=== PATIENT | male | born 1945 | race African-American/Black ===

== ENCOUNTER → 2017-08-05 | Day surgery (SDC) | payer OTHER ==
[~2017-08-05] VITALS: Ht 167.6 cm; Wt 63.9 kg
[~2017-08-05] MED LIST: *RESP: ALBUTEROL 2.5 MG/3 ML NEB (PRN) PERIprocedural Use ONLY NEB ONE; *morphine SULFATE 8 MG/ML PERIprocedure ONLY ONE; ADVA250A INH; ALBUAER3 INH; APIX5TAB PO; ATOR10TA15 PO; CHLORHEXIDINE GLUCONATE 2 % 1 PACK (2 CLOTHS) TOPICAL PRN; DILT30TA PO; DO NOT ADM ANY ANTICOAGULANT DRUGS PRN; EPINEPHrine HCL (1:1000) 1 MG/ML VIAL ONE; FURO40TA PO; INSULIN HUMAN REGULAR 1,000 UNITS/10 ML VIAL SQ PRN; JANU50TA4 PO; LACTATED RINGER'S 1000 ML IV PRN; LACTCHW3 CHEW; LEVEMIR SQ; LIDOCAINE HCL 1% PF 5 ML SYRINGE OTHER ONE; LIDOCAINE HCL 2% PF SOLN 10 ML VIAL ONE; METOPROLOL TARTRATE 25 MG TAB PO PRN; OXYGEN NAS.CANULA; PHENYLEPH/NS 1000 MCG/10 ML SYR IV ONE; POTA-163 PO; POVIDONE IODINE 5% (ANTISEPSIS KIT) 4 APPLICATIONS EACH NARE PRN; PRED1 PO; PROPOFOL 200 MG/20 ML AMP IV ONE; RESP: ALBUTEROL 2.5 MG/3 ML NEB (PRN) NEB; SODIUM CHLORID 0.9% 500 ML IV PRN; SODIUM CHLORIDE 0.9% 20 ML VIAL ONE; UMEC1AER INH; WARF-23 PO
[2017-08-05 05:51] LABS: AUTOMATED NEUTROPHIL # 5.5 TH/MM3 (1.8-7.7); BASOPHIL # 0.1 TH/MM3 (0-0.2); BASOPHIL % 0.9 % (0.0-2.0); EOSINOPHIL # 0.3 TH/MM3 (0-0.4); EOSINOPHIL % 3.3 % (0.0-4.0); HEMATOCRIT 40.9 % (39.0-51.0); HEMO FLAGS DIFF FINAL; LYMPH % 27.7 % (9.0-44.0); LYMPHOCYTE # 2.7 TH/MM3 (1.0-4.8); MEAN CELL VOLUME 86.4 FL (80.0-100.0); MEAN CORPUSCULAR HEMOGLOBIN 28.3 PG (27.0-34.0); MEAN CORPUSCULAR HGB CONC 32.7 % (32.0-36.0); MONO % 10.9 % (0.0-8.0); NEUT % 57.2 % (16.0-70.0); PLATELET COUNT 317 TH/MM3 (150-450); RED BLOOD COUNT 4.73 MIL/MM3 (4.50-5.90); RED CELL DISTRIBUTION WIDTH 14.6 % (11.6-17.2); WHITE BLOOD COUNT 9.7 TH/MM3 (4.0-11.0)
[2017-08-05 06:06] LABS: PROTHROMBIN TIME - PATIENT 10.5 SEC (9.8-11.6)
--- NOTE | 2017-08-05 09:32 | MR ---
cc: KYLAH MONTERO Corrected: 08/08/2017 DATE: 08/04/2017 TYPE OF PROCEDURE Fiberoptic bronchoscopy flexible. REASON FOR BRONCHOSCOPY: Density in the left lower lung, rule out underlying malignancy. PROCEDURE: Fiberoptic bronchoscopy performed via LMA. Vocal cords intact. Trachea mildly hyperemic. Demetra sharp. Right mainstem bronchus, right upper, middle and lower lobe inspected. No obstruction or mass lesion identified. Left mainstem bronchus, left upper and lower lobes without obstruction or mass lesion. However, thick mucous plugs quite difficult to remove via bronchoscopy which had to be removed and reintroduced several times to take all plugs out the tracheobronchial tree was patent. Washings from both sides of the tracheobronchial tree for routine TB, fungal cultures as cytological examination obtained. Cytologic brush biopsies left lower lung obtained as well for cytological exam procedure well tolerated. The patient transferred to recovery in stable condition. IMPRESSION 1. Moderate tracheobronchitis 2. Excess mucoid secretion and plugging. 3. No endobronchial obstruction or mass lesion. 4. Entire procedure well tolerated. 5. Samples obtained as above. 6. The patient transferred to recovery room stable condition. MD NYASIA Grijalva/mai /8:37 AM /9:17 AM MTDHuy
[2017-08-05 10:32] VITALS: BP 121/67; PULSE 106; RESP 20; TEMP 97.5; O2SAT 97
--- NOTE | 2017-08-05 12:15 | EKG ---
Date Performed: 08/05/2017 Time Performed: 06:03:34 PTAGE: 71 years EKG: SINUS TACHYCARDIA WITH FREQUENT ECTOPIC PREMATURE COMPLEXES NONSPECIFIC T-WAVE ABNORMALITY ABNORMAL RHYTHM ECG Compared to PREVIOUS TRACING sinus tachycardia has replaced supraventricular tachycardia PREVIOUS TR ACIN06/23/2016 19.46 DOCTOR: Estuardo Sims Interpretating Date/Time 08/05/2017 12:12:51
== END | disposition home or self-care (01) ==
LOC: HSDC 05:09
PROVIDERS: ATTEND Internal Medicine Sleep Medicine
DX: J40 Bronchitis, not specified as acute or chronic (principal); J44.9 Chronic obstructive pulmonary disease, unspecified; J96.90 Respiratory failure, unspecified, unspecified whether with hypoxia or hypercapnia; R94.31 Abnormal electrocardiogram [ECG] [EKG]; Z99.81 Dependence on supplemental oxygen; Z79.01 Long term (current) use of anticoagulants
CPT/HCPCS: 00520; 31623; 82948; 85025; 85610; 85730; 87015; 87070; 87102; 87116; 87205; 87206; 88305; 93005; 94664; J2270; J2370; J3010; J7120; J7613; J0171

== ENCOUNTER 2017-11-21 01:28 | Inpatient (IN) | payer MEDICARE, OTHER ==
[2017-11-20 22:54] VITALS: BP 131/66; PULSE 87; RESP 18; TEMP 97.4; O2SAT 92
[~2017-11-21] VITALS: Ht 167.6 cm; Wt 71.0 kg
[2017-11-21] VITALS (18 sets, daily range): BP systolic 113–159; BP diastolic 62–78; PULSE 72–114; RESP 18–24; TEMP 96.7–100.1; O2SAT 88–98
[~2017-11-21 01:28] MED LIST changes: -*RESP: ALBUTEROL 2.5 MG/3 ML NEB (PRN) PERIprocedural Use ONLY NEB ONE; -*morphine SULFATE 8 MG/ML PERIprocedure ONLY ONE; -CHLORHEXIDINE GLUCONATE 2 % 1 PACK (2 CLOTHS) TOPICAL PRN; -DO NOT ADM ANY ANTICOAGULANT DRUGS PRN; -EPINEPHrine HCL (1:1000) 1 MG/ML VIAL ONE; -INSULIN HUMAN REGULAR 1,000 UNITS/10 ML VIAL SQ PRN; -LACTATED RINGER'S 1000 ML IV PRN; -LIDOCAINE HCL 1% PF 5 ML SYRINGE OTHER ONE; -LIDOCAINE HCL 2% PF SOLN 10 ML VIAL ONE; -METOPROLOL TARTRATE 25 MG TAB PO PRN; -PHENYLEPH/NS 1000 MCG/10 ML SYR IV ONE; -POVIDONE IODINE 5% (ANTISEPSIS KIT) 4 APPLICATIONS EACH NARE PRN; -PROPOFOL 200 MG/20 ML AMP IV ONE; -RESP: ALBUTEROL 2.5 MG/3 ML NEB (PRN) NEB; -SODIUM CHLORID 0.9% 500 ML IV PRN; -SODIUM CHLORIDE 0.9% 20 ML VIAL ONE
[2017-11-21] MEDS ORDERED: ONDANSETRON HCL 4 MG/2 ML VIAL IV ONE (01:45)
[2017-11-21] MEDS ORDERED: RESP: ALBUTEROL 2.5 MG/3 ML NEB (SCH) NEB ONE (01:45)
[2017-11-21] MEDS ORDERED: SODIUM CHLORIDE 0.9% FLUSH 10 ML FLUSH IVF PRN (01:45)
--- NOTE | 2017-11-21 01:54 | PD ---
HPI Chief Complaint: Respiratory Symptoms Time Seen by Provider: 01:34 Travel History International Travel<30 days: No Contact w/Intl Traveler<30days: No Traveled to known affect area: No History of Present Illness HPI The patient is a 72 year old male who presents to the [facility] emergency department with a history of shortness of breath and chest pain that began this afternoon. The patient reports that the chest pain has been constant and in the center of his chest. He reports that his shortness of breath has been associated with a cough this afternoon that has been productive of white sputum. The patient reports that he does have a history of COPD. He is on 2 L nasal cannula O2 as needed. He cannot recall the name of his physician, however he believes that it is a hospice physician. He does not know why he is on hospice. He denies having any prior history of myocardial infarction. He reports having nausea and vomiting 2 this afternoon. He denies having any diarrhea. His last bowel movement was earlier today. He denies having any lower extremity edema, calf pain, or erythema. Otherwise on review of systems, the patient denies having any known recent fevers, neck pain, abdominal pain, urinary symptoms, or neurologic symptoms. [facility] Past Medical History Narrative Medical The patient's past medical history is significant for COPD, history of atrial fibrillation, according to the record a history of diastolic congestive heart failure, type 2 diabetes mellitus, chronic neck and back pain, chronic kidney disease, acid reflux, hypertension, hyperlipidemia. Hx Anticoagulant Therapy: Yes Arthritis: Yes Asthma: No Autoimmune Disease: No Blood Disorders: No Anxiety: No Depression: No Heart Rhythm Problems: No Cancer: No Cardiac Catheterization: No Cardiovascular Problems: Yes High Cholesterol: Yes Chemotherapy: No Chest Pain: No Congestive Heart Failure: No COPD: Yes Cerebrovascular Accident: No Coronary Artery Disease: No Diabetes: Yes Patient Takes Glucophage: No Diminished Hearing: No Endocrine: Yes Gastrointestinal Disorders: Yes GERD: Yes Genitourinary: Yes Hiatal Hernia: No Hypertension: Yes Immune Disorder: No Implanted Vascular Access Dvce: Yes Kidney Stones: Yes Musculoskeletal: Yes (CHRONIC BACK PAIN AND NECK PAIN ) Neurologic: Yes Psychiatric: No Reproductive: No Respiratory: Yes (copd) Immunizations Current: Yes Migraines: No Pneumonia: Yes Radiation Therapy: No Renal Failure: No Seizures: No Sickle Cell Disease: No Sleep Apnea: No Thyroid Disease: No Ulcer: No PNEUMOCCOCAL Vaccine (Year): 1 Past Surgical History Narrative Surgical The patient's past surgical history is significant for cervical spinal fusion in 1965 Abdominal Surgery: No AICD: No Arteriovenous Shunt: No Body Medical Devices: FUSION IN NECK UPPER BACK Cardiac Surgery: No Coronary Artery Bypass Graft: No Ear Surgery: No Endocrine Surgery: No Eye Surgery: No Genitourinary Surgery: No Gynecologic Surgery: No Insulin Pump: No Joint Replacement: No Oral Surgery: No Pacemaker: No Thoracic Surgery: No Other Surgery: Yes Social History Alcohol Use: No Tobacco Use: No Substance Use: No Allergies-Medications (Allergen,Severity, Reaction): Coded Allergies: tiotropium (Unverified Allergy, Severe, 11/21/17) Uncoded Allergies: SPIRIVA (Allergy, Unknown, TONGUE SWELLING, 03/15/14) PT STATES THAT HIS TONGUE WOULD SWELL AND HAVE DRY MOUTH WHEN TAKING THIS MED AT HOME Reported Meds & Prescriptions Reported Meds & Active Scripts Active Reported Atorvastatin (Atorvastatin Calcium) 10 Mg Tab 10 Mg PO HS Eliquis (Apixaban) 5 Mg Tab 5 Mg PO BID Oxygen (O2) (Miscellaneous Medication) Inha Liter TOSHA.CANULA DIRECTED PRN Oxygen Concentrator Portable Gaseous 2 L/min via Nasal Canula Continuous For 99 months Levemir Inj (Insulin Detemir) 1,000 unit/ 10 ML Vial 20 Units SQ HS Do not mix with any other Insulin. Furosemide 40 Mg Tab 40 Mg PO BID Advair Diskus Inh (Fluticasone-Salmeterol Inh) 250-50 Mcg/Blist Aer 1 Puff INH BID Rinse mouth after use. Diltiazem (Diltiazem HCl) 30 Mg Tab 30 Mg PO QID Proair Hfa 8.5 GM Inh (Albuterol Sulfate) 90 Mcg/Act Aer 1 Puff INH Q4H PRN 108 mcg/actuation Review of Systems Except as stated in HPI: all other systems reviewed are Neg General / Constitutional: No: Fever Eyes: No: Visual changes HENT: Positive: Congestion, No: Headaches Cardiovascular: Positive: Chest Pain or Discomfort, Dyspnea on exertion, No: Edema Respiratory: Positive: Cough, Shortness of Breath Gastrointestinal: Positive: Nausea, Vomiting, No: Abdominal Pain Genitourinary: No: Dysuria Musculoskeletal: No: Pain Skin: No Rash Neurologic: No: Weakness, Focal Abnormalities, Change in Mentation, Slurred Speech, Sensory Disturbance Psychiatric: No: Depression Endocrine: No: Polydipsia Hematologic/Lymphatic: No: Easy Bruising Physical Exam Narrative General: The patient is a well-developed well-nourished male in no acute distress, O2 saturations on room air are 88%. Head and Neck exam: Head is normocephalic atraumatic. Eyes: EOMI, pupils are equal round and reactive to light. Nose: Midline septum with pink mucous membranes Mouth: Dentition unremarkable. Moist mucus membranes. Posterior oropharynx is not erythematous. No tonsillar hypertrophy. Uvula midline. Airway patent. Neck: No palpable lymphadenopathy. No nuchal rigidity. No thyromegaly. Cardiovascular: Regular sounding tachycardia with a rate in the low 100 without murmurs, gallops , or rubs. No pulse deficit to the extremities on simultaneous auscultation and palpation of his radial artery. Lungs: Decreased breath sounds in bilateral lung bases, soft anterior expiratory wheezes, no rhonchi. No accessory muscle use. No paroxysmal abdominal breathing. No tripoding. Abdomen: Soft, without tenderness to palpation in all 4 quadrants of the abdomen. No guarding, rebound, or rigidity. Normal bowel sounds are audible. No tenderness on palpation of McBurney's point. Negative Mon sign. Extremities: No clubbing or cyanosis. The patient has trace pedal edema bilateral lower extremities. 2+ pulses in all 4 extremities. No calf tenderness on palpation. Back: No spinous process tenderness to palpation. No costovertebral angle tenderness to palpation. Neurologic Exam: Grossly nonfocal. Skin Exam: No rash noted. Intact skin that is warm and dry. Data Data Last Documented VS Vital Signs Date Time Temp Pulse Resp B/P (MAP) Pulse Ox O2 Delivery O2 Flow Rate FiO2 11/21/17 01:56 98 Nasal Cannula 3.00 11/21/17 01:50 11/21/17 01:36 110 19 11/21/17 01:31 99.0 Orders Orders Complete Blood Count With Diff (11/21/17 01:45) Comprehensive Metabolic Panel (11/21/17 01:45) B-Type Natriuretic Peptide (11/21/17 01:45) Act Partial Throm Time (Ptt) (11/21/17 01:45) Prothrombin Time / Inr (Pt) (11/21/17 01:45) Magnesium (Mg) (11/21/17 01:45) Ckmb (Isoenzyme) Profile (11/21/17 01:45) Troponin I (11/21/17 01:45) Urinalysis - C+S If Indicated (11/21/17 01:45) Influenzae A/B Antigen (11/21/17 01:45) Blood Culture (11/21/17 01:45) Iv Access Insert/Monitor (11/21/17 01:45) Electrocardiogram (11/21/17 01:45) Ecg Monitoring (11/21/17 01:45) Oximetry (11/21/17 01:45) Oxygen Administration (11/21/17 01:45) Chest, Single Ap (11/21/17 01:45) Sodium Chloride 0.9% Flush (Ns Flush) (11/21/17 01:45) Ondansetron Inj (Zofran Inj) (11/21/17 01:45) Albuterol Neb (Albuterol Neb) (11/21/17 01:45) Aspirin Chew (Aspirin Chew) (11/21/17 02:00) Nitroglycerin 2% Oint (Nitroglycerin 2% (11/21/17 02:00) Nitroglycerin Sl (Nitrostat Sl) (11/21/17 02:00) Lactic Acid Sepsis Protocol (11/21/17 02:35) Ceftriaxone Inj (Rocephin Inj) (11/21/17 02:45) Azithromycin Inj (Zithromax Inj) (11/21/17 02:45) CKMB (11/21/17 02:02) CKMB% (11/21/17 02:02) Ct Pulmonary Angiogram (11/21/17 03:16) Admit Order (Ed Use Only) (11/21/17 04:26) Labs Laboratory Tests Test 11/21/17 02:02 11/21/17 03:10 11/21/17 03:25 White Blood Count 15.3 TH/MM3 Red Blood Count 4.67 MIL/MM3 Hemoglobin 13.5 GM/DL Hematocrit 39.7 % Mean Corpuscular Volume 85.0 FL Mean Corpuscular Hemoglobin 28.8 PG Mean Corpuscular Hemoglobin Concent 33.9 % Red Cell Distribution Width 13.8 % Platelet Count 250 TH/MM3 Mean Platelet Volume 8.1 FL Neutrophils (%) (Auto) 87.5 % Lymphocytes (%) (Auto) 6.5 % Monocytes (%) (Auto) 5.7 % Eosinophils (%) (Auto) 0.0 % Basophils (%) (Auto) 0.3 % Neutrophils # (Auto) 13.4 TH/MM3 Lymphocytes # (Auto) 1.0 TH/MM3 Monocytes # (Auto) 0.9 TH/MM3 Eosinophils # (Auto) 0.0 TH/MM3 Basophils # (Auto) 0.0 TH/MM3 CBC Comment DIFF FINAL Differential Comment Prothrombin Time 9.8 SEC Prothromb Time International Ratio 1.0 RATIO Activated Partial Thromboplast Time 26.1 SEC Blood Urea Nitrogen 14 MG/DL Creatinine 0.97 MG/DL Random Glucose 276 MG/DL Total Protein 6.8 GM/DL Albumin 3.2 GM/DL Calcium Level 8.0 MG/DL Magnesium Level 1.8 MG/DL Alkaline Phosphatase 139 U/L Aspartate Amino Transf (AST/SGOT) 17 U/L Alanine Aminotransferase (ALT/SGPT) 23 U/L Total Bilirubin 0.5 MG/DL Sodium Level 135 MEQ/L Potassium Level 3.6 MEQ/L Chloride Level 99 MEQ/L Carbon Dioxide Level 24.5 MEQ/L Anion Gap 12 MEQ/L Estimat Glomerular Filtration Rate 92 ML/MIN Total Creatine Kinase 176 U/L Creatine Kinase MB 2.3 NG/ML Troponin I LESS THAN 0.02 NG/ML B-Type Natriuretic Peptide 10 PG/ML Urine Color LIGHT-YELLOW Urine Turbidity CLEAR Urine pH 5.5 Urine Specific [place] 1.025 Urine Protein 30 mg/dL Urine Glucose (UA) 1000 mg/dL Urine Ketones 40 mg/dL Urine Occult Blood SMALL Urine Nitrite NEG Urine Bilirubin NEG Urine Urobilinogen LESS THAN 2.0 MG/DL Urine Leukocyte Esterase NEG Urine RBC 8 /hpf Urine Squamous Epithelial Cells 1 /hpf Microscopic Urinalysis Comment CULT NOT INDICATED Lactic Acid Level 1.5 mmol/L MDM Medical Decision Making Medical Screen Exam Complete: Yes Emergency Medical Condition: Yes Medical Record Reviewed: Yes Interpretation(s) Last Impressions CT Angiography 11/21/17 0316 Signed Impressions: Service Date/Time: Tuesday, November 21, 2017 04:57 - CONCLUSION: 1. No evidence of pulmonary embolism. 2. There is a consolidation in both lower lobes right greater than left as well as patchy infiltrate in the right middle lobe most characteristic of pneumonia. Mario Herr MD Chest X-Ray 11/21/17 0145 Signed Impressions: Service Date/Time: Tuesday, November 21, 2017 01:58 - CONCLUSION: More Midinspiratory exam with patchy opacity at the lung bases right greater than left. This may represent atelectasis. Early pneumonia could have this appearance especially at the right lung base. Mario Herr MD Differential Diagnosis COPD exacerbation, versus pneumonia, versus effusion, versus congestive heart failure, versus pulmonary embolus Narrative Course During the course of the patient's emergency department visit, the patient's history, examination, and differential diagnosis were reviewed with the patient. The patient was placed on a field operator with oximetry and frequent blood pressure monitoring. The patient had IV access obtained and blood work sent for analysis. The patient had an EKG done on arrival that shows a sinus tachycardia rate of 107, QRS duration 70 ms, QTC 374 ms without any acute ST segment elevation or depression. The patient was initially provided Zofran 4 mg IV for nausea, nitroglycerin sublingual 1, nitroglycerin 1 inch to the chest wall, aspirin 324 mg p.o. 1. The patient's laboratory studies were reviewed and remarkable for a white count of 15.3, hemoglobin 13.5, platelets 250 with 87.5 neutrophils, lymphocytes 6.5, CMP is remarkable for sodium of 135, glucose 276, calcium 8.0, alk phos 139, cardiac enzymes within normal limits, BNP is 10, PT PTT within normal limit, urinalysis shows 30 protein 1000 glucose 40 ketones small occult blood 8 RBCs culture not indicated. A CTA to rule out PE was done. Lactic acid is 1.5. Radiology studies were reviewed and remarkable for patchy infiltrate bilateral lung jewell suspicious for pneumonia. The patient was started on Rocephin 1 g IV, Zithromax [address] scan shows no evidence of pulmonary embolism. There is consolidation in both lower lobes right greater than the left as well as a patchy infiltrate in the right middle lobe most characteristic of pneumonia. The patient's results were discussed with the patient, including the plan of care. I explained that further testing and/ or monitoring is indicated based on the patient's history, examination, and/ or laboratory findings. Therefore, I recommended admission for additional evaluation. The patient expressed understanding and was agreeable with this plan. The patient was admitted to the hospital in stable condition and sent to a bed under the care of the [facility] service. Sepsis Criteria SIRS Criteria (2 or more): Heart rate over 90, RR > 20 or PaCO2 < 32, WBC > 45911, < 4000 or > 10% bands Sepsis Criteria (SIRS+source): Infect source susp/known Physician Communication Physician Communication The patient's case including history, pertinent physical examination findings, and laboratory studies were discussed with Dr. Arana. It was agreed that the patient would be admitted to the [facility] service. Diagnosis Primary Impression: CAP (community acquired pneumonia) Qualified Codes: J18.9 - Pneumonia, unspecified organism Admitting Information Admitting Physician Requests: Admit Sara Verdin MD Nov 21, 2017 01:54
[2017-11-21] MEDS ORDERED: ASPIRIN 81 MG CHEW TAB CHEW ONE (02:00)
[2017-11-21] MEDS ORDERED: NITROGLYCERIN 2% OINT 1 GM PACKET TOPICAL ONE (02:00)
[2017-11-21] MEDS ORDERED: NITROGLYCERIN 0.4 MG SL 25 TABS/BTL SL ONE (02:00)
--- NOTE | 2017-11-21 02:14 | RADRPT ---
EXAM DATE/TIME: 11/21/2017 01:58 [facility] COMPARISON: CHEST SINGLE AP, June 23, 2016, 14:38. INDICATIONS : Shortness of breath. MEDICAL HISTORY : Chronic obstructive pulmonary disease. SURGICAL HISTORY : None. ENCOUNTER: Initial ACUITY: 1 day PAIN SCORE: 0/10 LOCATION: Bilateral chest FINDINGS: A single AP semierect view of the chest was obtained and is more Midinspiratory than the prior study. There is patchy opacity at the lung bases right greater than left. There is no effusion. The heart a nd mediastinal structures remain within normal limits. The bony thorax is intact. Overlying electroca rdiogram leads are present. CONCLUSION: More Midinspiratory exam with patchy opacity at the lung bases right greater than lef t. This may represent atelectasis. Early pneumonia could have this appearance especially at the right lung base. Mario Herr MD on November 21, 2017 at 2:11 Board Certified Radiologist. This report was verified electronically.
[2017-11-21 02:20] LABS: AUTOMATED NEUTROPHIL # 13.4 TH/MM3 (1.8-7.7); BASOPHIL % 0.3 % (0.0-2.0); HEMATOCRIT 39.7 % (39.0-51.0); HEMOGLOBIN 13.5 GM/DL (13.0-17.0); LYMPH % 6.5 % (9.0-44.0); MEAN CORPUSCULAR HEMOGLOBIN 28.8 PG (27.0-34.0); MEAN CORPUSCULAR HGB CONC 33.9 % (32.0-36.0); MEAN PLATELET VOLUME 8.1 FL (7.0-11.0); MONO % 5.7 % (0.0-8.0); MONOCYTE # 0.9 TH/MM3 (0-0.9); NEUT % 87.5 % (16.0-70.0); PLATELET COUNT 250 TH/MM3 (150-450); RED BLOOD COUNT 4.67 MIL/MM3 (4.50-5.90); RED CELL DISTRIBUTION WIDTH 13.8 % (11.6-17.2); WHITE BLOOD COUNT 15.3 TH/MM3 (4.0-11.0)
[2017-11-21 02:29] LABS: PROTHROMBIN TIME - PATIENT 9.8 SEC (9.8-11.6)
[2017-11-21 02:45] LABS: ALBUMIN 3.2 GM/DL (3.4-5.0); ALT (GPT) 23 U/L (12-78); AST (GOT) 17 U/L (15-37); BICARBONATE 24.5 MEQ/L (21.0-32.0); BLOOD UREA NITROGEN 14 MG/DL (7-18); CHLORIDE 99 MEQ/L (98-107); CREATININE 0.97 MG/DL (0.60-1.30); GLOMERULAR FILTRATION RATE 92 ML/MIN (>89); GLUCOSE,RANDOM 276 MG/DL (74-106); MAGNESIUM 1.8 MG/DL (1.5-2.5); SODIUM (NA) 135 MEQ/L (136-145)
[2017-11-21] MEDS ORDERED: cefTRIAXone INJ 1,000 MG in SODIUM CHLORIDE 0.9% INJ 100 ML IV ONE (02:45)
[2017-11-21] MEDS ORDERED: AZITHROMYCIN INJ 500 MG in SODIUM CHLOR 0.9% 250 ML INJ 250 ML IV ONE (02:45)
[2017-11-21 02:50] LABS: ALKALINE PHOSPHATASE 139 U/L (45-117); TOTAL BILIRUBIN ADULT 0.5 MG/DL (0.2-1.0); TOTAL PROTEIN 6.8 GM/DL (6.4-8.2); TROPONIN I LESS THAN 0.02 NG/ML (0.02-0.05)
[2017-11-21 03:30] LABS: BILIRUBIN, URINE NEG (NEG); BLOOD, URINE SMALL (NEG); GLUCOSE,URINE 1000 mg/dL (NEG); KETONE, URINE 40 mg/dL (NEG); NITRITE,URINE NEG (NEG); PH, URINE 5.5 (5.0-8.5); SQUAMOUS EPITHELIAL CELL URINE 1 /hpf (0-5); URINE COLOR LIGHT-YELLOW (YELLW/STRAW); URINE LEUKOCYTE ESTERASE NEG (NEG)
[2017-11-21] MEDS ORDERED: ACETAMINOPHEN 325 MG TAB PO PRN (04:45)
[2017-11-21] MEDS ORDERED: SODIUM CHLORIDE 0.9% FLUSH 10 ML FLUSH IV FLUSH PRN (04:45)
[2017-11-21] MEDS ORDERED: ONDANSETRON HCL 4 MG/2 ML VIAL IVP PRN (04:45)
[2017-11-21] MEDS ORDERED: NALOXONE HCL 0.4 MG/ML AMP IV PUSH PRN (04:45)
[2017-11-21] MEDS ORDERED: GLUCAGON 1 MG/ML VIAL OTHER PRN (05:15)
[2017-11-21] MEDS ORDERED: DEXTROSE 50% IN WATER 50 ML VIAL(D50) IV PUSH PRN (05:15)
--- NOTE | 2017-11-21 05:21 | HHI.HP ---
HPI Service [facility] Primary Care Physician Unknown Admission Diagnosis Pneumonia, shortness of breath, chest pain Diagnoses: Travel History International Travel<30 Days: No Contact w/Intl Traveler <30 Da: No Traveled to Known Affected Are: No History of Present Illness 72-year-old male with a past medical history significant for atrial fibrillation anticoagulated on Eliquis, COPD, diabetes mellitus, hypertension, hyperlipidemia, history of pulmonary embolism and CHF (last echo on 04/03/16 showed an EF of 55-60%) presents the emergency department for evaluation of worsening cough and shortness of breath. The patient reports that earlier this evening he began to have a cough productive of yellow sputum. He reports coughing to the point of vomiting. He describes associated weakness and shortness of breath. He also complains of a substernal chest pain that is stabbing in nature and worse when he coughs. He denies any fever/chills. Denies nausea/vomiting/diarrhea. Review of Systems Except as stated in HPI: all other systems reviewed are Neg Past Family Social History Past Medical History atrial fibrillation anticoagulated on Eliquis, COPD, diabetes mellitus, hypertension, hyperlipidemia, history of pulmonary embolism and CHF (last echo on 04/03/16 showed an EF of 55-60%) Past Surgical History Multiple neck and back surgeries Reported Medications Reported Meds & Active Scripts Active Reported Atorvastatin (Atorvastatin Calcium) 10 Mg Tab 10 Mg PO HS Eliquis (Apixaban) 5 Mg Tab 5 Mg PO BID Oxygen (O2) (Miscellaneous Medication) Inha Liter TOSHA.CANULA DIRECTED PRN Oxygen Concentrator Portable Gaseous 2 L/min via Nasal Canula Continuous For 99 months Levemir Inj (Insulin Detemir) 1,000 unit/ 10 ML Vial 20 Units SQ HS Do not mix with any other Insulin. Furosemide 40 Mg Tab 40 Mg PO BID Advair Diskus Inh (Fluticasone-Salmeterol Inh) 250-50 Mcg/Blist Aer 1 Puff INH BID Rinse mouth after use. Diltiazem (Diltiazem HCl) 30 Mg Tab 30 Mg PO QID Proair Hfa 8.5 GM Inh (Albuterol Sulfate) 90 Mcg/Act Aer 1 Puff INH Q4H PRN 108 mcg/actuation Allergies: Coded Allergies: tiotropium (Unverified Allergy, Severe, 11/21/17) Uncoded Allergies: SPIRIVA (Allergy, Unknown, TONGUE SWELLING, 03/15/14) PT STATES THAT HIS TONGUE WOULD SWELL AND HAVE DRY MOUTH WHEN TAKING THIS MED AT HOME Family History Mother with diabetes mellitus Social History Denies alcohol, tobacco or illicit drugs Physical Exam Vital Signs Vital Signs Date Time Temp Pulse Resp B/P (MAP) Pulse Ox O2 Delivery O2 Flow Rate FiO2 11/21/17 04:53 72 151/62 (91) 11/21/17 01:56 98 Nasal Cannula 3.00 11/21/17 01:50 98 Nasal Cannula 3.00 11/21/17 01:50 98 3.00 11/21/17 01:46 98 3.00 11/21/17 01:36 110 19 159/78 (105) 88 11/21/17 01:31 99.0 114 24 128/78 (95) 89 Room Air Physical Exam GENERAL: Thin, male lying in bed SKIN: No rashes, ecchymoses or lesions. Cool and dry. HEAD: Atraumatic. Normocephalic. No temporal or scalp tenderness. EYES: Pupils equal round and reactive. Extraocular motions intact. No scleral icterus. No injection or drainage. ENT: Nose without bleeding, purulent drainage or septal hematoma. Throat without erythema, tonsillar hypertrophy or exudate. Uvula midline. Airway patent. NECK: Trachea midline. No JVD or lymphadenopathy. Supple, nontender, no meningeal signs. CARDIOVASCULAR: Regular rate and rhythm without murmurs, gallops, or rubs. RESPIRATORY: Tight. Breath sounds equal bilaterally. No wheezes, rales, or rhonchi. GASTROINTESTINAL: Abdomen soft, non-tender, nondistended. No hepato-splenomegaly , or palpable masses. No guarding. MUSCULOSKELETAL: Extremities without clubbing, cyanosis, or edema. No joint tenderness, effusion, or edema noted. No calf tenderness. NEUROLOGICAL: Awake and alert. Cranial nerves II through XII intact. Motor and sensory grossly within normal limits. Normal speech. Laboratory Laboratory Tests Test 11/21/17 02:02 11/21/17 03:10 11/21/17 03:25 11/21/17 05:00 White Blood Count 15.3 Red Blood Count 4.67 Hemoglobin 13.5 Hematocrit 39.7 Mean Corpuscular Volume 85.0 Mean Corpuscular Hemoglobin 28.8 Mean Corpuscular Hemoglobin Concent 33.9 Red Cell Distribution Width 13.8 Platelet Count 250 Mean Platelet Volume 8.1 Neutrophils (%) (Auto) 87.5 Lymphocytes (%) (Auto) 6.5 Monocytes (%) (Auto) 5.7 Eosinophils (%) (Auto) 0.0 Basophils (%) (Auto) 0.3 Neutrophils # (Auto) 13.4 Lymphocytes # (Auto) 1.0 Monocytes # (Auto) 0.9 Eosinophils # (Auto) 0.0 Basophils # (Auto) 0.0 CBC Comment DIFF FINAL Differential Comment Prothrombin Time 9.8 Prothromb Time International Ratio 1.0 Activated Partial Thromboplast Time 26.1 Blood Urea Nitrogen 14 Creatinine 0.97 Random Glucose 276 Total Protein 6.8 Albumin 3.2 Calcium Level 8.0 Magnesium Level 1.8 Alkaline Phosphatase 139 Aspartate Amino Transf (AST/SGOT) 17 Alanine Aminotransferase (ALT/SGPT) 23 Total Bilirubin 0.5 Sodium Level 135 Potassium Level 3.6 Chloride Level 99 Carbon Dioxide Level 24.5 Anion Gap 12 Estimat Glomerular Filtration Rate 92 Total Creatine Kinase 176 Creatine Kinase MB 2.3 Troponin I LESS THAN 0.02 B-Type Natriuretic Peptide 10 Urine Color LIGHT-YELLOW Urine Turbidity CLEAR Urine pH 5.5 Urine Specific [place] 1.025 Urine Protein 30 Urine Glucose (UA) 1000 Urine Ketones 40 Urine Occult Blood SMALL Urine Nitrite NEG Urine Bilirubin NEG Urine Urobilinogen LESS THAN 2.0 Urine Leukocyte Esterase NEG Urine RBC 8 Urine Squamous Epithelial Cells 1 Microscopic Urinalysis Comment CULT NOT INDICATED Lactic Acid Level 1.5 Date/Time Source Procedure Growth Status 11/21/17 02:03 Blood Peripheral Aerobic Blood Culture Pending Received 11/21/17 02:03 Blood Peripheral Anaerobic Blood Culture Pending Received 11/21/17 02:51 Nasal Aspirate Influenza Types A,B Antigen (CYNTHIA) - Final NEGATIVE FOR FLU A AND B ANTIGEN.... Complete Result Diagram: 11/21/17 0202 11/21/17 0202 Caprini VTE Risk Assessment Caprini VTE Risk Assessment: Mod/High Risk (score >= 2) Caprini Risk Assessment Model Point Value = 1 Point Value = 2 Point Value = 3 Point Value = 5 Age 41-60 Minor surgery BMI > 25 kg/m2 Swollen legs Varicose veins or History of unexplained or recurrent spontaneous Oral contraceptives or hormone replacement Sepsis (< 1 month) Serious lung disease, including pneumonia (< 1 month) Abnormal pulmonary function Acute myocardial infarction Congestive heart failure (< 1 month) History of inflammatory bowel disease Medical patient at bed rest Age 61-74 Arthroscopic surgery Major open surgery (> 45 min) Laparoscopic surgery (> 45 min) Malignancy Confined to bed (> 72 hours) Immobilizing plaster cast Central venous access Age >= 75 History of VTE Family history of VTE Factor V Leiden Prothrombin [id number] Lupus anticoagulant Anticardiolipin antibodies Elevated serum homocysteine Heparin-induced thrombocytopenia Other congenital or acquired thrombophilia Stroke (< 1 month) Elective arthroplasty Hip, pelvis, or leg fracture Acute spinal cord injury (< 1 month) Prophylaxis Regimen Total Risk Factor Score Risk Level Prophylaxis Regimen 0-1 Low Early ambulation 2 Moderate Order ONE of the following: *Sequential Compression Device (SCD) *Heparin 5000 units SQ BID 3-4 Higher Order ONE of the following medications: *Heparin 5000 units SQ TID *Enoxaparin/Lovenox 40 mg SQ daily (WT < 150 kg, CrCl > 30 mL/min) *Enoxaparin/Lovenox 30 mg SQ daily (WT < 150 kg, CrCl > 10-29 mL/min) *Enoxaparin/Lovenox 30 mg SQ BID (WT < 150 kg, CrCl > 30 mL/min) AND/OR *Sequential Compression Device (SCD) 5 or more Highest Order ONE of the following medications: *Heparin 5000 units SQ TID (Preferred with Epidurals) *Enoxaparin/Lovenox 40 mg SQ daily (WT < 150 kg, CrCl > 30 mL/min) *Enoxaparin/Lovenox 30 mg SQ daily (WT < 150 kg, CrCl > 10-29 mL/min) *Enoxaparin/Lovenox 30 mg SQ BID (WT < 150 kg, CrCl > 30 mL/min) AND *Sequential Compression Device (SCD) Assessment and Plan Assessment and Plan Assessment/plan: 1. Pneumonia/COPD exacerbation Chest x-ray significant for patchy opacities at the lung bases, right greater than left, personally reviewed Rocephin/azithromycin IV steroids Albuterol 2. Chest pain Likely secondary to above however pain was substernal in nature EKG showed sinus tachycardia without ST segment elevations or depressions, personally reviewed Initial troponin negative ACS rule out pending; serial troponins/EKGs 3. Atrial fibrillation Continue anticoagulation with Eliquis Continue home medications 4. CHF/hypertension/hyperlipidemia Continue home medications 5. History of PE Anticoagulation as above 6. Diabetes mellitus Continue home Levemir SSI Monitor blood glucose FEN Diabetic diet Electrolytes: Monitor and replete when necessary [place] Physician Certification 2 Midnight Certification Type: Admission for Inpatient Services Order for Inpatient Services The services are ordered in accordance with Medicare regulations or non- Medicare payer requirements, as applicable. In the case of services not specified as inpatient-only, they are appropriately provided as inpatient services in accordance with the 2-midnight benchmark. Estimated LOS (days): 2 2 days is the estimated time the patient will need to remain in the hospital, assuming treatment plan goals are met and no additional complications. Post-Hospital Plan: Not yet determined Tawana Arana MD Nov 21, 2017 05:21
[2017-11-21] MEDS ORDERED: IOHEXOL 350 MG/ML 10 ML VIAL (for RAD DIAG) IVCONTRAST ONE (05:23)
[2017-11-21 05:40] LABS: TROPONIN I LESS THAN 0.02 NG/ML (0.02-0.05)
--- NOTE | 2017-11-21 05:44 | RADRPT ---
EXAM DATE/TIME: 11/21/2017 04:57 [facility] COMPARISON: CT PULMONARY ANGIOGRAM, March 29, 2016, 21:34. INDICATIONS : Cough and dyspnea; history of pulmonary embolus in 2016. IV CONTRAST: 71 cc Omnipaque 350 (iohexol) IV RADIATION DOSE: 5.77 CTDIvol (mGy) MEDICAL HISTORY : Cardiovascular disease. Chronic obstructive pulmonary disease. Gastroesophageal reflux disease.Renal disease SURGICAL HISTORY : None. ENCOUNTER: Initial ACUITY: 1 day PAIN SCALE: 0/10 LOCATION: chest TECHNIQUE: Volumetric scanning of the chest was performed using a pulmonary embolism protocol MIP images were re constructed. Using automated exposure control and adjustment of the mA and/or kV according to patien t size, radiation dose was kept as low as reasonably achievable to obtain optimal diagnostic quality images. DICOM format image data is available electronically for review and comparison. Follow-up recommendations for detected pulmonary nodules are based at a minimum on nodule size and pa tient risk factors according to Fleischner Society Guidelines. FINDINGS: PULMONARY ARTERIES: No filling defects are seen in the pulmonary arteries through the segmental level. LUNGS: There is no pneumothorax . There is a focal area of dense consolidation now noted in the right lower lobe. There is mild patchy infiltrate in the right middle lobe. There is also an area of consolidati on in the left lower lobe. No concerning pulmonary nodule is visualized. PLEURAE: There is no pleural thickening or pleural effusion. MEDIASTINUM: There is good visualization of the great vessels of the middle mediastinum. No evidence of mediastin al or hilar adenopathy/mass. Mild coronary artery calcifications are present. MUSCULOSKELETAL: Within normal limits for patient age. MISCELLANEOUS: The visualized upper abdominal organs demonstrate no acute abnormality. CONCLUSION: 1. No evidence of pulmonary embolism. 2. There is a consolidation in both lower lobes right greater than left as well as patchy infiltrate in the right middle lobe most characteristic of pneumonia. Mario Herr MD on November 21, 2017 at 5:38 Board Certified Radiologist. This report was verified electronically.
[2017-11-21] MEDS ORDERED: methylPREDNISolone SOD SUCC 40 MG/1 ML VIAL IV PUSH SCH (06:00)
[2017-11-21] MEDS: APIXABAN 5 MG TABLET PO SCH ×2 (09:20→22:33)
[2017-11-21] MEDS: DILTIAZEM HCL 30 MG TAB PO SCH ×4 (09:20→22:33)
[2017-11-21] MEDS: SODIUM CHLORIDE 0.9% FLUSH 10 ML FLUSH IV FLUSH SCH ×2 (09:21→22:30)
[2017-11-21] MEDS: FUROSEMIDE 40 MG TAB PO SCH ×2 (09:21→22:31)
[2017-11-21] MEDS: INSULIN ASPART SUPPLEMENTAL SCALE SQ SCH ×4 (09:26→22:32)
--- NOTE | 2017-11-21 11:01 | HHI.PR ---
Subjective Remarks Follow-up pneumonia/COPD exacerbation 11/21/17-patient seen and examined, stable and reports some improvement of shortness of breath Objective Vitals Vital Signs Date Time Temp Pulse Resp B/P (MAP) Pulse Ox O2 Delivery O2 Flow Rate FiO2 11/21/17 09:53 95 11/21/17 08:15 99.0 105 18 113/69 (84) 94 11/21/17 08:05 111 11/21/17 07:50 11/21/17 07:36 100.1 98 18 123/72 (89) 97 Nasal Cannula 2.00 11/21/17 04:53 72 151/62 (91) 11/21/17 01:56 98 Nasal Cannula 3.00 11/21/17 01:50 98 Nasal Cannula 3.00 11/21/17 01:50 98 3.00 11/21/17 01:46 98 3.00 11/21/17 01:36 110 19 159/78 (105) 88 11/21/17 01:31 99.0 114 24 128/78 (95) 89 Room Air I/O 11/20/17 11/20/17 11/20/17 11/21/17 11/21/17 11/21/17 07:00 15:00 23:00 07:00 15:00 23:00 Intake Total 350 ml Balance 350 ml Intake IV Total 350 ml Result Diagram: 11/21/17 0202 11/21/17 [address] Angiography 11/21/17 0316 Signed Impressions: Service Date/Time: Tuesday, November 21, 2017 04:57 - CONCLUSION: 1. No evidence of pulmonary embolism. 2. There is a consolidation in both lower lobes right greater than left as well as patchy infiltrate in the right middle lobe most characteristic of pneumonia. Mario Herr MD Chest X-Ray 11/21/17 0145 Signed Impressions: Service Date/Time: Tuesday, November 21, 2017 01:58 - CONCLUSION: More Midinspiratory exam with patchy opacity at the lung bases right greater than left. This may represent atelectasis. Early pneumonia could have this appearance especially at the right lung base. Mario Herr MD Objective Remarks GENERAL: NAD SKIN: Warm and dry. HEAD: Normocephalic. EYES: No scleral icterus. No injection or drainage. NECK: Supple, trachea midline. No JVD or lymphadenopathy. CARDIOVASCULAR: Regular rate and rhythm without murmurs, gallops, or rubs. RESPIRATORY: Breath sounds decrease bilaterally. No accessory muscle use.+ wheezing GASTROINTESTINAL: Abdomen soft, non-tender, nondistended. MUSCULOSKELETAL: No cyanosis, or edema. BACK: Nontender without obvious deformity. No CVA tenderness. A/P Assessment and Plan 72-year-old man with 1. Pneumonia/COPD exacerbation Chest x-ray significant for patchy opacities at the lung bases, right greater than left Rocephin/azithromycin IV steroids however decrease to Q8H, add Spiriva and Symbicort Albuterol 2. Chest pain Likely secondary to above however pain was substernal in nature EKG showed sinus tachycardia without ST segment elevations or depressions Initial troponin negative ACS rule d out per protocol with serial troponin /EKGs 3. Atrial fibrillation Continue anticoagulation with Eliquis Continue home medications 4. CHF/hypertension/hyperlipidemia Continue home medications 5. History of PE Anticoagulation as above 6. Diabetes mellitus Continue home Levemir SSI Monitor blood glucose Shaheen Knight MD Nov 21, 2017 11:01
[2017-11-21 13:16] LABS: TROPONIN I LESS THAN 0.02 NG/ML (0.02-0.05)
[2017-11-21] MEDS: methylPREDNISolone SOD SUCC 40 MG/1 ML VIAL IV PUSH SCH ×2 (13:38→22:31)
[2017-11-21] MEDS: RESP: ALBUTEROL 2.5 MG/IPRATROPIUM 0.5 MG NEB (PRN) NEB (16:12)
[2017-11-21] MEDS: RESP: ALBUTEROL 2.5 MG/IPRATROPIUM 0.5 MG NEB (SCH) NEB (21:38)
[2017-11-21] MEDS: BUDESONIDE-FORMOTEROL 160/4.5 MCG INHALER INH SCH (22:29)
[2017-11-21] MEDS: ATORVASTATIN 10 MG TAB PO SCH (22:31)
[2017-11-21] MEDS: INSULIN DETEMIR 100 UNITS/ML VIAL SQ SCH (22:32)
--- NOTE | 2017-11-21 22:55 | EKG ---
Date Performed: 11/21/2017 Time Performed: 04:50:52 PTAGE: 72 years EKG: SINUS TACHYCARDIA WITH SHORT AK INTERVAL WITH OCCASIONAL VENTRICULAR PREMATURE COMPLEXES AB NORMAL RHYTHM ECG NO PREVIOUS TRACING DOCTOR: Jed Bowser Interpretating Date/Time 11/21/2017 22:50:00
--- NOTE | 2017-11-21 22:56 | EKG ---
Date Performed: 11/21/2017 Time Performed: 01:38:42 PTAGE: 72 years EKG: SINUS TACHYCARDIA ABNORMAL RHYTHM ECG NO PREVIOUS TRACING DOCTOR: Jed Bwoser Interpretating Date/Time 11/21/2017 22:50:43
[2017-11-22] VITALS (9 sets, daily range): BP systolic 119–128; BP diastolic 63–73; PULSE 79–97; RESP 17–19; TEMP 96.7–97.8; O2SAT 92–96
[2017-11-22] MEDS ORDERED: AZITHROMYCIN INJ 250 MG in SODIUM CHLOR 0.9% 250 ML INJ 250 ML IV SCH (03:00)
[2017-11-22] MEDS: AZITHROMYCIN INJ 250 MG in SODIUM CHLOR 0.9% 250 ML INJ 250 ML IV SCH (03:29)
[2017-11-22] MEDS: cefTRIAXone INJ 1,000 MG in SODIUM CHLORIDE 0.9% INJ 100 ML IV SCH (04:35)
[2017-11-22] MEDS: methylPREDNISolone SOD SUCC 40 MG/1 ML VIAL IV PUSH SCH ×3 (06:34→20:29)
[2017-11-22 07:20] LABS: AUTOMATED NEUTROPHIL # 19.5 TH/MM3 (1.8-7.7); BASOPHIL % 0.2 % (0.0-2.0); HEMATOCRIT 38.9 % (39.0-51.0); HEMOGLOBIN 13.1 GM/DL (13.0-17.0); LYMPH % 3.7 % (9.0-44.0); LYMPHOCYTE # 0.8 TH/MM3 (1.0-4.8); MEAN CELL VOLUME 85.4 FL (80.0-100.0); MEAN CORPUSCULAR HEMOGLOBIN 28.8 PG (27.0-34.0); MEAN CORPUSCULAR HGB CONC 33.7 % (32.0-36.0); MEAN PLATELET VOLUME 9.1 FL (7.0-11.0); MONO % 3.2 % (0.0-8.0); MONOCYTE # 0.7 TH/MM3 (0-0.9); NEUT % 92.9 % (16.0-70.0); PLATELET COUNT 181 TH/MM3 (150-450); RED BLOOD COUNT 4.55 MIL/MM3 (4.50-5.90); RED CELL DISTRIBUTION WIDTH 14.2 % (11.6-17.2)
[2017-11-22 07:32] LABS: BICARBONATE 26.9 MEQ/L (21.0-32.0); CALCIUM 8.4 MG/DL (8.5-10.1); CREATININE 1.07 MG/DL (0.60-1.30)
[2017-11-22] MEDS: INSULIN ASPART SUPPLEMENTAL SCALE SQ SCH ×4 (08:00→20:29)
[2017-11-22] MEDS: APIXABAN 5 MG TABLET PO SCH ×2 (08:10→20:28)
[2017-11-22] MEDS: BUDESONIDE-FORMOTEROL 160/4.5 MCG INHALER INH SCH ×2 (08:11→20:29)
[2017-11-22] MEDS: FUROSEMIDE 40 MG TAB PO SCH ×2 (08:11→20:27)
[2017-11-22] MEDS: DILTIAZEM HCL 30 MG TAB PO SCH ×4 (08:11→20:27)
[2017-11-22] MEDS: SODIUM CHLORIDE 0.9% FLUSH 10 ML FLUSH IV FLUSH SCH ×2 (08:11→20:28)
[2017-11-22] MEDS ORDERED: TIOTROPIUM BROMIDE 18 MCG INH INH SCH (09:00)
[2017-11-22] MEDS: RESP: ALBUTEROL 2.5 MG/IPRATROPIUM 0.5 MG NEB (SCH) NEB ×3 (09:09→20:47)
[2017-11-22 11:19] LABS: BANDS 25 % (0-6); LYMPHOCYTES 4 % (9-44); MONOCYTES 1 % (0-8); POLYS (SEG NEUTROPHILS) 70 % (16-70)
--- NOTE | 2017-11-22 13:32 | HHI.PR ---
Subjective Remarks Follow-up pneumonia/COPD exacerbation 11/21/17-patient seen and examined, stable and reports some improvement of shortness of breath 11/22/17-patient seen and examined, seen with some shortness of breath however states he has been doing much better since admission Objective Vitals Vital Signs Date Time Temp Pulse Resp B/P (MAP) Pulse Ox O2 Delivery O2 Flow Rate FiO2 11/22/17 11:45 97.6 93 18 127/63 (84) 96 11/22/17 09:11 92 Nasal Cannula 2.00 11/22/17 08:04 97.8 97 19 128/73 (91) 93 11/22/17 04:58 97.8 94 18 119/73 (88) 95 11/21/17 23:20 96.7 86 18 120/68 (85) 94 11/21/17 21:39 92 Nasal Cannula 3.00 11/21/17 18:04 96 11/21/17 16:23 98 11/21/17 16:16 95 Nasal Cannula 2.00 11/21/17 16:00 97.0 100 18 126/69 (88) 96 11/21/17 15:09 109 11/21/17 14:44 98 I/O 11/21/17 11/21/17 11/21/17 11/22/17 11/22/17 11/22/17 07:00 15:00 23:00 07:00 15:00 23:00 Intake Total 350 ml 600 ml 830 ml Output Total 1250 ml 550 ml Balance 350 ml -650 ml 280 ml Intake Oral 600 ml 480 ml IV Total 350 ml 350 ml Output Urine Total 1250 ml 550 ml # Bowel Movements 0 0 Result Diagram: 11/22/17 0545 11/22/17 0947 Objective Remarks GENERAL: NAD SKIN: Warm and dry. HEAD: Normocephalic. EYES: No scleral icterus. No injection or drainage. NECK: Supple, trachea midline. No JVD or lymphadenopathy. CARDIOVASCULAR: Regular rate and rhythm without murmurs, gallops, or rubs. RESPIRATORY: Breath sounds decrease bilaterally. No accessory muscle use.+ wheezing GASTROINTESTINAL: Abdomen soft, non-tender, nondistended. MUSCULOSKELETAL: No cyanosis, or edema. BACK: Nontender without obvious deformity. No CVA tenderness. A/P Problem List: (1) COPD exacerbation ICD Code: J44.1 - Obstructive chronic bronchitis with exacerbation Status: Acute (2) CAP (community acquired pneumonia) ICD Code: J18.9 - CAP (community acquired pneumonia) Status: Acute Assessment and Plan 72-year-old man with 1. Pneumonia/COPD exacerbation Chest x-ray significant for patchy opacities at the lung bases, right greater than left Continue Rocephin/azithromycin IV steroids however decrease to 20mg IV Q8H, add Serevent and continue Symbicort , Scheduled +PRN Duo Neb Albuterol 2. Chest pain-Resolved Likely secondary to above however pain was substernal in nature EKG showed sinus tachycardia without ST segment elevations or depressions Initial troponin negative ACS rule d out per protocol with serial troponin /EKGs 3. Atrial fibrillation Continue anticoagulation with Eliquis Continue home medications 4. CHF/hypertension/hyperlipidemia Continue home medications 5. History of PE Anticoagulation as above 6. Diabetes mellitus Continue home Levemir SSI Monitor blood glucose Shaheen Knight MD Nov 22, 2017 13:32
--- NOTE | 2017-11-22 18:54 | EKG ---
Date Performed: 11/21/2017 Time Performed: 14:00:22 PTAGE: 72 years EKG: Sinus rhythm WITH SHORT OK INTERVAL LOW QRS VOLTAGE IN EXTREMITY LEADS BORDERLINE ECG Since the prior tracing, th ere has been no significant change PREVIOUS TRACING : 11/21/2017 04.50 DOCTOR: Radha Domínguez Interpretating Date/Time 11/22/2017 18:48:29
[2017-11-22] MEDS: ATORVASTATIN 10 MG TAB PO SCH (20:28)
[2017-11-22] MEDS: INSULIN DETEMIR 100 UNITS/ML VIAL SQ SCH (20:29)
[2017-11-22] MEDS ORDERED: SALMETEROL XINAFOATE 50 MCG DISKUS INH SCH (21:00)
[2017-11-23] VITALS (11 sets, daily range): BP systolic 103–119; BP diastolic 57–70; PULSE 76–91; RESP 17–18; TEMP 96.3–97.3; O2SAT 92–98
[2017-11-23] MEDS: AZITHROMYCIN INJ 250 MG in SODIUM CHLOR 0.9% 250 ML INJ 250 ML IV SCH (03:00)
[2017-11-23] MEDS: cefTRIAXone INJ 1,000 MG in SODIUM CHLORIDE 0.9% INJ 100 ML IV SCH (03:29)
[2017-11-23] MEDS: methylPREDNISolone SOD SUCC 40 MG/1 ML VIAL IV PUSH SCH ×3 (05:53→21:07)
[2017-11-23] MEDS: RESP: ALBUTEROL 2.5 MG/IPRATROPIUM 0.5 MG NEB (SCH) NEB ×3 (08:12→19:37)
[2017-11-23] MEDS: INSULIN ASPART SUPPLEMENTAL SCALE SQ SCH ×4 (08:26→21:00)
[2017-11-23] MEDS: DILTIAZEM HCL 30 MG TAB PO SCH ×4 (08:27→21:07)
[2017-11-23] MEDS: APIXABAN 5 MG TABLET PO SCH ×2 (08:27→21:08)
[2017-11-23] MEDS: FUROSEMIDE 40 MG TAB PO SCH ×2 (08:27→21:08)
[2017-11-23] MEDS: SODIUM CHLORIDE 0.9% FLUSH 10 ML FLUSH IV FLUSH SCH ×2 (08:28→21:08)
[2017-11-23] MEDS: BUDESONIDE-FORMOTEROL 160/4.5 MCG INHALER INH SCH ×2 (08:28→21:06)
--- NOTE | 2017-11-23 13:01 | HHI.PR ---
Subjective Remarks Follow-up pneumonia/COPD exacerbation 11/21/17-patient seen and examined, stable and reports some improvement of shortness of breath 11/22/17-patient seen and examined, seen with some shortness of breath however states he has been doing much better since admission 11/23/17-patient seen and examined,complains of rattle lungs sounds. +SOB but denies any CP Objective Vitals Vital Signs Date Time Temp Pulse Resp B/P (MAP) Pulse Ox O2 Delivery O2 Flow Rate FiO2 11/23/17 12:06 96.9 88 17 110/59 (76) 96 11/23/17 08:14 93 Nasal Cannula 2.00 11/23/17 08:08 97.3 91 18 103/67 (79) 97 11/23/17 08:00 90 11/23/17 07:45 Nasal Cannula 2.00 11/23/17 03:51 84 11/23/17 03:34 97.0 76 18 119/70 (86) 92 11/23/17 00:29 97.2 83 18 115/57 (76) 93 11/22/17 23:46 88 11/22/17 22:45 Nasal Cannula 2.00 11/22/17 20:49 93 Nasal Cannula 2.00 11/22/17 20:11 96.7 79 18 121/66 (84) 92 11/22/17 20:00 90 11/22/17 16:01 97.2 97 17 124/71 (88) 95 I/O 11/22/17 11/22/17 11/22/17 11/23/17 11/23/17 11/23/17 07:00 15:00 23:00 07:00 15:00 23:00 Intake Total 830 ml 720 ml 360 ml 710 ml Output Total 550 ml 900 ml 500 ml Balance 280 ml -180 ml 360 ml 210 ml Intake Oral 480 ml 720 ml 360 ml 360 ml IV Total 350 ml 350 ml Output Urine Total 550 ml 900 ml 500 ml # Voids 5 # Bowel Movements 0 3 1 1 Result Diagram: 11/22/17 0545 11/22/17 [address] Angiography 11/21/17 0316 Signed Impressions: Service Date/Time: Tuesday, November 21, 2017 04:57 - CONCLUSION: 1. No evidence of pulmonary embolism. 2. There is a consolidation in both lower lobes right greater than left as well as patchy infiltrate in the right middle lobe most characteristic of pneumonia. Mario Herr MD Chest X-Ray 11/21/17 0145 Signed Impressions: Service Date/Time: Tuesday, November 21, 2017 01:58 - CONCLUSION: More Midinspiratory exam with patchy opacity at the lung bases right greater than left. This may represent atelectasis. Early pneumonia could have this appearance especially at the right lung base. Mario Herr MD Objective Remarks GENERAL: NAD SKIN: Warm and dry. HEAD: Normocephalic. EYES: No scleral icterus. No injection or drainage. NECK: Supple, trachea midline. No JVD or lymphadenopathy. CARDIOVASCULAR: Regular rate and rhythm without murmurs, gallops, or rubs. RESPIRATORY: Breath sounds decrease bilaterally. No accessory muscle use.+ wheezing GASTROINTESTINAL: Abdomen soft, non-tender, nondistended. MUSCULOSKELETAL: No cyanosis, or edema. BACK: Nontender without obvious deformity. No CVA tenderness. A/P Problem List: (1) COPD exacerbation ICD Code: J44.1 - Obstructive chronic bronchitis with exacerbation Status: Acute (2) CAP (community acquired pneumonia) ICD Code: J18.9 - CAP (community acquired pneumonia) Status: Acute Assessment and Plan 72-year-old man with 1. Pneumonia/COPD exacerbation Chest x-ray significant for patchy opacities at the lung bases, right greater than left Continue Rocephin/azithromycin IV Solu Medrol 20mg IV Q8H, Symbicort, Scheduled +PRN Duo Neb. Add Mucinex Albuterol 2. Chest pain-Resolved Likely secondary to above however pain was substernal in nature EKG showed sinus tachycardia without ST segment elevations or depressions Initial troponin negative ACS rule d out per protocol with serial troponin /EKGs 3. Atrial fibrillation Continue anticoagulation with Eliquis Continue home medications 4. CHF/hypertension/hyperlipidemia Continue home medications 5. History of PE Anticoagulation as above 6. Diabetes mellitus Continue home Levemir and add Aspart 5units TIDAC Shaheen Acosta MD Nov 23, 2017 13:01
[2017-11-23] MEDS: INSULIN ASPART 1,000 UNITS/10 ML VIAL SQ SCH (17:21)
[2017-11-23 20:23] LABS: AUTOMATED NEUTROPHIL # 11.8 TH/MM3 (1.8-7.7); BASOPHIL # 0.1 TH/MM3 (0-0.2); BASOPHIL % 0.5 % (0.0-2.0); HEMATOCRIT 38.1 % (39.0-51.0); HEMOGLOBIN 12.5 GM/DL (13.0-17.0); LYMPH % 4.9 % (9.0-44.0); LYMPHOCYTE # 0.7 TH/MM3 (1.0-4.8); MEAN CELL VOLUME 85.4 FL (80.0-100.0); MEAN CORPUSCULAR HEMOGLOBIN 28.2 PG (27.0-34.0); MEAN PLATELET VOLUME 8.5 FL (7.0-11.0); MONO % 5.4 % (0.0-8.0); MONOCYTE # 0.7 TH/MM3 (0-0.9); NEUT % 89.2 % (16.0-70.0); PLATELET COUNT 240 TH/MM3 (150-450); RED BLOOD COUNT 4.46 MIL/MM3 (4.50-5.90); RED CELL DISTRIBUTION WIDTH 13.9 % (11.6-17.2); WHITE BLOOD COUNT 13.2 TH/MM3 (4.0-11.0)
[2017-11-23 20:45] LABS: BICARBONATE 24.5 MEQ/L (21.0-32.0); CALCIUM 8.7 MG/DL (8.5-10.1); CREATININE 0.99 MG/DL (0.60-1.30)
[2017-11-23] MEDS: guaiFENesin E.R. 600 MG TAB PO SCH (21:07)
[2017-11-23] MEDS: INSULIN DETEMIR 100 UNITS/ML VIAL SQ SCH (21:08)
[2017-11-23] MEDS: ATORVASTATIN 10 MG TAB PO SCH (21:08)
[2017-11-24 00:04] VITALS: PULSE 80
[2017-11-24 00:53] VITALS: BP 113/65; PULSE 83; RESP 18; TEMP 96.7; O2SAT 96
[2017-11-24] MEDS: AZITHROMYCIN INJ 250 MG in SODIUM CHLOR 0.9% 250 ML INJ 250 ML IV SCH (03:00)
[2017-11-24 03:30] VITALS: BP 113/65; PULSE 83; RESP 18; TEMP 97.1; O2SAT 98
[2017-11-24] MEDS: RESP: ALBUTEROL 2.5 MG/IPRATROPIUM 0.5 MG NEB (PRN) NEB (03:59)
[2017-11-24 04:02] VITALS: O2SAT 97
[2017-11-24] MEDS: cefTRIAXone INJ 1,000 MG in SODIUM CHLORIDE 0.9% INJ 100 ML IV SCH (05:17)
[2017-11-24] MEDS: methylPREDNISolone SOD SUCC 40 MG/1 ML VIAL IV PUSH SCH (05:35)
[2017-11-24 08:00] VITALS: BP 109/65; PULSE 76; PULSE 90; RESP 18; TEMP 97; O2SAT 91
[2017-11-24] MEDS: RESP: ALBUTEROL 2.5 MG/IPRATROPIUM 0.5 MG NEB (SCH) NEB (08:03)
[2017-11-24 08:05] VITALS: O2SAT 91
[2017-11-24] MEDS: FUROSEMIDE 40 MG TAB PO SCH (08:24)
[2017-11-24] MEDS: APIXABAN 5 MG TABLET PO SCH (08:24)
[2017-11-24] MEDS: guaiFENesin E.R. 600 MG TAB PO SCH (08:24)
[2017-11-24] MEDS: DILTIAZEM HCL 30 MG TAB PO SCH (08:24)
[2017-11-24] MEDS: INSULIN ASPART SUPPLEMENTAL SCALE SQ SCH (08:25)
[2017-11-24] MEDS: SODIUM CHLORIDE 0.9% FLUSH 10 ML FLUSH IV FLUSH SCH (08:25)
[2017-11-24] MEDS: BUDESONIDE-FORMOTEROL 160/4.5 MCG INHALER INH SCH (08:25)
[2017-11-24] MEDS: INSULIN ASPART 1,000 UNITS/10 ML VIAL SQ SCH (08:25)
[2017-11-24] MEDS ORDERED: AZIT250T3 PO (10:59)
[2017-11-24] MEDS ORDERED: VENTAER INH (10:59)
[2017-11-24] MEDS ORDERED: PRED20 PO (10:59)
[2017-11-24] MEDS ORDERED: Budeson-Formot 160-4.5 Mcg Inh INH (10:59)
[2017-11-24] MEDS ORDERED: guaiFENesin ER PO (10:59)
--- NOTE | 2017-11-24 11:03 | HHI.PR ---
Subjective Remarks Follow-up pneumonia/COPD exacerbation 11/21/17-patient seen and examined, stable and reports some improvement of shortness of breath 11/22/17-patient seen and examined, seen with some shortness of breath however states he has been doing much better since admission 11/23/17-patient seen and examined,complains of rattle lungs sounds. +SOB but denies any CP 11/24/17-patient seen and examined, but significant improvement or shortness of breath and denies any chest pain. Currently afebrile. Looking for discharge home. Objective Vitals Vital Signs Date Time Temp Pulse Resp B/P (MAP) Pulse Ox O2 Delivery O2 Flow Rate FiO2 11/24/17 08:05 91 Nasal Cannula 3.00 11/24/17 08:00 97.0 90 18 109/65 (80) 91 11/24/17 08:00 76 11/24/17 04:02 97 Nasal Cannula 2.00 11/24/17 03:30 97.1 83 18 113/65 (81) 98 11/24/17 00:53 96.7 83 18 113/65 (81) 96 11/24/17 00:04 80 11/23/17 22:13 Nasal Cannula 2.00 11/23/17 20:39 96.3 85 17 113/62 (79) 98 11/23/17 20:21 82 11/23/17 16:00 83 11/23/17 15:58 96 Nasal Cannula 2.00 11/23/17 12:06 96.9 88 17 110/59 (76) 96 I/O 11/23/17 11/23/17 11/23/17 11/24/17 11/24/17 11/24/17 07:00 15:00 23:00 07:00 15:00 23:00 Intake Total 710 ml 1250 ml 480 ml 590 ml Output Total 500 ml 1200 ml 360 ml 550 ml Balance 210 ml 50 ml 120 ml 40 ml Intake Oral 360 ml 1250 ml 480 ml 240 ml IV Total 350 ml 350 ml Output Urine Total 500 ml 1200 ml 360 ml 550 ml # Voids 2 # Bowel Movements 1 0 0 Result Diagram: 11/23/17191911/23/171948 Imaging Last Impressions CT Angiography 11/21/171 Signed Impressions: Service Date/Time: Tuesday, November 21, 2017 04:57 - CONCLUSION: 1. No evidence of pulmonary embolism. 2. There is a consolidation in both lower lobes right greater than left as well as patchy infiltrate in the right middle lobe most characteristic of pneumonia. Mario Herr MD Chest X-Ray 11/21/17 0145 Signed Impressions: Service Date/Time: Tuesday, November 21, 2017 01:58 - CONCLUSION: More Midinspiratory exam with patchy opacity at the lung bases right greater than left. This may represent atelectasis. Early pneumonia could have this appearance especially at the right lung base. Mario Herr MD Objective Remarks GENERAL: NAD SKIN: Warm and dry. HEAD: Normocephalic. EYES: No scleral icterus. No injection or drainage. NECK: Supple, trachea midline. No JVD or lymphadenopathy. CARDIOVASCULAR: Regular rate and rhythm without murmurs, gallops, or rubs. RESPIRATORY: Breath sounds equal bilaterally. No accessory muscle use. GASTROINTESTINAL: Abdomen soft, non-tender, nondistended. MUSCULOSKELETAL: No cyanosis, or edema. BACK: Nontender without obvious deformity. No CVA tenderness. Procedures None A/P Problem List: (1) COPD exacerbation ICD Code: J44.1 - Obstructive chronic bronchitis with exacerbation Status: Acute (2) CAP (community acquired pneumonia) ICD Code: J18.9 - CAP (community acquired pneumonia) Status: Acute Assessment and Plan 72-year-old man with 1. Pneumonia/COPD exacerbation-Resolved Chest x-ray significant for patchy opacities at the lung bases, right greater than left Continue Rocephin/azithromycin IV Solu Medrol 20mg IV Q8H, Symbicort, Scheduled +PRN Duo Neb. Mucinex Discharge home on PO Prednisone and antibiotic Albuterol 2. Chest pain-Resolved Likely secondary to above however pain was substernal in nature EKG showed sinus tachycardia without ST segment elevations or depressions Initial troponin negative ACS rule d out per protocol with serial troponin /EKGs 3. Atrial fibrillation Continue anticoagulation with Eliquis Continue home medications 4. CHF/hypertension/hyperlipidemia Continue home medications 5. History of PE Anticoagulation as above 6. Diabetes mellitus Continue home Levemir and Aspart 5units TIDAC SSI Shaheen Knight MD Nov 24, 2017 11:03
--- NOTE | 2017-11-24 11:05 | HHI.DS ---
Discharge Summary Admission Date Nov 21, 2017 at 04:27 Discharge Date: Nov 24, 2017 Admitting Diagnosis Pneumonia, shortness of breath, chest pain (1) COPD exacerbation ICD Code: J44.1 - Obstructive chronic bronchitis with exacerbation Status: Acute (2) CAP (community acquired pneumonia) ICD Code: J18.9 - CAP (community acquired pneumonia) Status: Acute Procedures None Brief History - From Admission 72-year-old male with a past medical history significant for atrial fibrillation anticoagulated on Eliquis, COPD, diabetes mellitus, hypertension, hyperlipidemia, history of pulmonary embolism and CHF (last echo on 04/03/16 showed an EF of 55-60%) presents the emergency department for evaluation of worsening cough and shortness of breath. The patient reports that earlier this evening he began to have a cough productive of yellow sputum. He reports coughing to the point of vomiting. He describes associated weakness and shortness of breath. He also complains of a substernal chest pain that is stabbing in nature and worse when he coughs. He denies any fever/chills. Denies nausea/vomiting/diarrhea. CBC/BMP: 11/23/17191911/23/171948 Significant Findings Laboratory Tests Test 11/21/17 11:57 11/22/17 05:45 11/22/17 09:47 11/23/17 19:20 Troponin I LESS THAN 0.02 NG/ML White Blood Count 21.0 TH/MM3 (4.0-11.0) 13.2 TH/MM3 (4.0-11.0) Hematocrit 38.9 % (39.0-51.0) 38.1 % (39.0-51.0) Neutrophils (%) (Auto) 92.9 % (16.0-70.0) 89.2 % (16.0-70.0) Lymphocytes (%) (Auto) 3.7 % (9.0-44.0) 4.9 % (9.0-44.0) Neutrophils # (Auto) 19.5 TH/MM3 (1.8-7.7) 11.8 TH/MM3 (1.8-7.7) Lymphocytes # (Auto) 0.8 TH/MM3 (1.0-4.8) 0.7 TH/MM3 (1.0-4.8) Band Neutrophils % 25 % (0-6) Lymphocytes % 4 % (9-44) Neutrophils # (Manual) 20.0 TH/MM3 (1.8-7.7) Blood Urea Nitrogen 19 MG/DL (7-18) Random Glucose 334 MG/DL (74-106) 370 MG/DL (74-106) Calcium Level 8.4 MG/DL (8.5-10.1) Sodium Level 135 MEQ/L (136-145) Chloride Level 96 MEQ/L (98-107) Estimat Glomerular Filtration Rate 82 ML/MIN (>89) Red Blood Count 4.46 MIL/MM3 (4.50-5.90) Hemoglobin 12.5 GM/DL (13.0-17.0) Test 11/23/17 19:49 Blood Urea Nitrogen 26 MG/DL (7-18) Random Glucose 201 MG/DL (74-106) Sodium Level 134 MEQ/L (136-145) Chloride Level 97 MEQ/L (98-107) Imaging Last Impressions CT Angiography 11/21/17 0316 Signed Impressions: Service Date/Time: Tuesday, November 21, 2017 04:57 - CONCLUSION: 1. No evidence of pulmonary embolism. 2. There is a consolidation in both lower lobes right greater than left as well as patchy infiltrate in the right middle lobe most characteristic of pneumonia. Mario Herr MD Chest X-Ray 11/21/17 0145 Signed Impressions: Service Date/Time: Tuesday, November 21, 2017 01:58 - CONCLUSION: More Midinspiratory exam with patchy opacity at the lung bases right greater than left. This may represent atelectasis. Early pneumonia could have this appearance especially at the right lung base. Mario Herr MD PE at Discharge GENERAL: NAD SKIN: Warm and dry. HEAD: Normocephalic. EYES: No scleral icterus. No injection or drainage. NECK: Supple, trachea midline. No JVD or lymphadenopathy. CARDIOVASCULAR: Regular rate and rhythm without murmurs, gallops, or rubs. RESPIRATORY: Breath sounds equal bilaterally. No accessory muscle use. GASTROINTESTINAL: Abdomen soft, non-tender, nondistended. MUSCULOSKELETAL: No cyanosis, or edema. BACK: Nontender without obvious deformity. No CVA tenderness. Hospital Course while in the hospital, patient was treated for 1. Pneumonia/COPD exacerbation-Resolved Chest x-ray significant for patchy opacities at the lung bases, right greater than left Treated with Rocephin/azithromycin and switch to PO Treated with Solu Medrol 20mg IV Q8H, Symbicort, Scheduled +PRN Duo Neb. Mucinex Albuterol 2. Chest pain-Resolved Likely secondary to above however pain was substernal in nature EKG showed sinus tachycardia without ST segment elevations or depressions Initial troponin negative ACS ruled out per protocol with serial troponin /EKGs 3. Atrial fibrillation Treated with anticoagulation with Eliquis Treated with home medications 4. CHF/hypertension/hyperlipidemia Treated home medications 5. History of PE Anticoagulation as above 6. Diabetes mellitus Treated with home Levemir and Aspart 5units TIDAC SSI Pt Condition on Discharge: Good Discharge Disposition: Discharge Home Discharge Time: <= 30 minutes Discharge Instructions DIET: Follow Instructions for: Diabetic Diet Activities you can perform: Regular-No Restrictions Follow up Referrals: PCP Follow-up - 1 Week New Medications: Albuterol 18 GM Inh (Ventolin Hfa 18 GM Inh) 90 Mcg/Act Aer 2 PUFF INH Q4-6H PRN for SHORTNESS OF BREATH, #1 INHALER 3 Refills Azithromycin (Azithromycin) 250 Mg Tab 250 MG PO DIRECTED for Infection, #6 TAB 0 Refills Take 2 tabs (500 mg) on day 1 then 1 tab daily x 4 days. Prednisone (Prednisone) 20 Mg Tab 20 MG PO DIRECTED for Inflammation, #11 TAB 0 Refills 40 MG twice a day x 3 days, then 20 MG daily x 3 days, then 10 MG daily x 3 days Insulin Aspart Inj (Novolog Inj) 1,000 Unit/10 Ml Vial 5 UNITS SQ TIDAC for Blood Sugar Management, #100 INJECTION 3 Refills [Budeson-Formot 160-4.5 Mcg Inh] () 60 PUFF AERO 2 PUFF INH Q12HR for Breathing Treatment, #1 11 Refills [guaiFENesin ER] () 600 MG TABCR 600 MG PO BID for Breathing Treatment, #20 MG Continued Medications: Albuterol 8.5 GM Inh (Proair Hfa 8.5 GM Inh) 90 Mcg/Act Aer 1 PUFF INH Q4H PRN for WHEEZING, #1 INHALER 0 Refills 108 mcg/actuation Apixaban (Eliquis) 5 Mg Tab 5 MG PO BID for Blood Clot Prevention, #60 TAB 0 Refills Atorvastatin (Atorvastatin) 10 Mg Tab 10 MG PO HS for Cholesterol Management, #30 TAB 0 Refills Diltiazem (Diltiazem) 30 Mg Tab 30 MG PO QID for Angina, #120 TAB 0 Refills Fluticasone-Salmeterol Inh (Advair Diskus Inh) 250-50 Mcg/Blist Aer 1 PUFF INH BID, #1 INHALER 0 Refills Rinse mouth after use. Furosemide (Furosemide) 40 Mg Tab 40 MG PO BID, #60 TAB 0 Refills Insulin Detemir Inj (Levemir Inj) 1,000 unit/ 10 ML Vial 20 UNITS SQ HS for Blood Sugar Management, VIAL 0 Refills Do not mix with any other Insulin. Shaheen Knight MD Nov 24, 2017 11:05
[2017-11-24] MEDS ORDERED: NOVOLOGP2 SQ (11:07)
== END 2017-11-24 12:19 | disposition home or self-care (01) | DRG 190 ==
LOC: NEPC 01:28 → NEDA 04:27 → N06B 07:57
PROVIDERS: ADMIT Hospitalist; ATTEND Hospitalist
DX: J44.0 Chronic obstructive pulmonary disease with (acute) lower respiratory infection (principal); J18.9 Pneumonia, unspecified organism; J44.1 Chronic obstructive pulmonary disease with (acute) exacerbation; I13.0 Hypertensive heart and chronic kidney disease with heart failure and stage 1 through stage 4 chronic kidney disease, or unspecified chronic kidney disease; E11.22 Type 2 diabetes mellitus with diabetic chronic kidney disease; Z79.4 Long term (current) use of insulin; N18.9 Chronic kidney disease, unspecified; I50.32 Chronic diastolic (congestive) heart failure; I48.91 Unspecified atrial fibrillation; Z79.02 Long term (current) use of antithrombotics/antiplatelets; Z86.711 Personal history of pulmonary embolism; R07.89 Other chest pain; E78.5 Hyperlipidemia, unspecified; K21.9 Gastro-esophageal reflux disease without esophagitis; M54.2 Cervicalgia; M54.9 Dorsalgia, unspecified; G89.29 Other chronic pain; Z98.1 Arthrodesis status
CPT/HCPCS: 71045; 71275; 80048; 80053; 81001; 82550; 82552; 82947; 82948; 83605; 83735; 83880; 84484; 85007; 85025; 85027; 85610; 85730; 87040; 87804; 93005; 94150; 94640; 94664; 94667; 94668; 96365; 96368; 96375; J0456; J0696; J1815; J2405; J2920; J7050; J7613; Q9967

== ENCOUNTER 2018-07-07 12:56 | Inpatient (IN) ==
[2018-07-07] MEDS ORDERED: MethylPREDNISolone Sod Succinate Inj 125 MG/2 ML Vial IV.PUSH ONE (14:56)
[2018-07-07 15:17] LABS: ABG Base Excess 5.6 mmol/L (-2-2); ABG PCO2 43 mmHg (38-42); ABG PO2 106 mmHg (61-120)
--- NOTE | 2018-07-07 15:22 | ED ---
HPI General Chief Complaint: Respiratory Symptoms Stated Complaint: repiratory Time Seen by Provider: 07/07/18 14:42 Source: patient Mode of arrival: EMS Limitations: no limitations History of Present Illness HPI Narrative: Old male presented with complaint of cough wheezing and shortness of breath for 2 weeks. He has history of COPD as well as pulmonary embolism, A. fib on Eliquis, diabetes mellitus, hypertension hyperlipidemia remote history of PE with a CHF and an EF of 55-60%. Patient is on home O2 2 L 24 7 he did nebs and DuoNeb's 2150: CT chest is negative, blood work within normal limits. Patient feels better with multiple DuoNeb's, still complaining of dyspnea, will be placed for observation overnight. Case was discussed with Dr. Pappas, who accepted patient for admission. MD Complaint: Reports cough Onset (ago): week(s) (2) Duration: constant and progressively worsening Severity: moderate Relieving factors: nothing Exacerbating factors: exertion Description of mucous: Reports clear Able to tolerate fluids by mouth: Yes Associated symptoms: Reports shortness of breath Related Data Home Medications Medication Instructions Recorded Confirmed albuterol sulfate [Ventolin HFA] 2 puff INHALATION Q4-6H PRN 07/07/18 07/07/18 hydrochlorothiazide 25 mg PO DAILY 07/07/18 07/07/18 insulin detemir U-100 [Levemir 42 unit SUBCUT QPM 07/07/18 07/07/18 FlexTouch U-100 Insuln] levofloxacin 500 mg PO DAILY 07/07/18 07/07/18 metformin 500 mg PO BID 07/07/18 07/07/18 metoprolol tartrate 12.5 mg PO DAILY 07/07/18 07/07/18 prednisone 40 mg PO DAILY 07/07/18 07/07/18 Allergies Allergy/AdvReac Type Severity Reaction Status Date / Time tiotropium Allergy Severe Cough Verified 07/08/18 11:58 SPIRIVA Allergy Unknown TONGUE Uncoded 03/15/14 18:29 SWELLING Review of Systems ROS: all other systems reviewed are negative PMFSH History History Provided By: Patient and Medical Record Social History Social History Substance History: No History of Abuse Second Hand Smoke Exposure: No Smoking Status: Former smoker Tobacco Type: Cigarettes How Often Do You Have a Drink Containing Alcohol: Never Recent Travel in [facility] within the Last 8 Weeks: No Recent Out of Country Travel within the Last 8 Weeks: No Immunization History Hx Influenza Vaccine This Season: No Exam Narrative Exam Narrative: GENERAL: Alert and oriented in no distress SKIN: Focused skin assessment warm/dry. HEAD: Atraumatic. Normocephalic. EYES: Pupils equal and round. No scleral icterus. No injection or drainage. ENT: No nasal bleeding or discharge. Mucous membranes pink and moist. NECK: Trachea midline. No JVD. CARDIOVASCULAR: Tachycardia with regular rhythm. No murmur appreciated. RESPIRATORY: Expiratory inspiratory wheezes bilaterally throughout. No accessory muscle use. Breath sounds bilaterally. GASTROINTESTINAL: Abdomen soft, non-tender, nondistended. Hepatic and splenic margins not palpable. MUSCULOSKELETAL: No obvious deformities. No clubbing. No cyanosis. Left lower extremity edema pedal 2+ NEUROLOGICAL: Awake and alert. No obvious cranial nerve deficits. Motor grossly within normal limits. Normal speech. PSYCHIATRIC: Appropriate mood and affect; insight and judgment normal. Course Initial Documented Vital Signs Temperature 98.2 F 07/07/18 13:17 Pulse Rate 122 H 07/07/18 13:17 Respiratory Rate 18 07/07/18 13:17 Blood Pressure 132/65 07/07/18 13:17 Pulse Oximetry 93 L 07/07/18 13:17 Last Documented Vital Signs Temperature 97.9 F 07/11/18 03:00 Pulse Rate 94 H 07/11/18 07:00 Respiratory Rate 18 07/11/18 04:04 Blood Pressure 127/69 07/11/18 03:00 Pulse Oximetry 100 07/11/18 03:00 Sign Out Sign Out Data: Patient Sign Out occurred on 07/07/18 at 19:18. Patient's care was discussed, and care was transferred from Ronald Washington DO to Elliott Botello DO. Sign Out Comment: Patient CARE transition to oncoming physician he has a CT angios pending at this time. Last updated by Ronald Washington DO at 07/07/18 19:10 Medical Decision Making MDM Narrative Medical decision making narrative: No infectious process at this time. Due to questionable history of PE will obtain a CT angios and results are pending at this time. Medical Screen Exam Complete: Yes Emergency Medical Condition: Yes Lab Data Lab results reviewed: Yes I reviewed the patient's lab results. Result diagrams: 07/08/18 07:38 07/08/18 07:38 Lab Results 07/07/18 07/07/18 07/07/18 Range/Units 15:08 15:10 15:10 WBC 11.5 H (4.0-11.0) th/mm3 RBC 4.59 (4.50-5.90) mil/mm3 Hgb 13.4 (13.0-17.0) gm/dL Hct 39.4 (39.0-51.0) % MCV 85.8 (80.0-100.0) fL MCH 29.3 (27.0-34.0) pg MCHC 34.2 (32.0-36.0) % RDW 15.6 (11.6-17.2) % Plt Count 300 (150-450) th/mm3 MPV 8.5 (7.0-11.0) fL Neut % (Auto) 51.4 (16.0-70.0) % Lymph % (Auto) 14.1 (9.0-44.0) % [place] % (Auto) 10.1 H (0.0-8.0) % Eos % (Auto) 23.2 H (0.0-4.0) % Baso % (Auto) 1.2 (0.0-2.0) % Neut # (Auto) 5.9 (1.8-7.7) th/mm3 Lymph # (Auto) 1.6 (1.0-4.8) th/mm3 [place] # (Auto) 1.2 H (0.0-0.9) th/mm3 Eos # (Auto) 2.7 H (0.0-0.4) th/mm3 Baso # (Auto) 0.1 (0.0-0.2) th/mm3 WBC Differential . Differential Comment Auto diff final PT 10.0 (9.8-11.6) sec INR 1.0 Ratio APTT 26.7 (24.3-30.1) sec Puncture Site Right radial Patient Temperature 98.6 O2 Saturation 97 (90-100) % ABG pH 7.46 H (7.380-7.420) ABG pCO2 43 H (38-42) mmHg ABG pO2 106 (61-120) mmHg ABG HCO3 30 H (22-26) mmol/L ABG O2 Content 17.8 (12.0-20.0) Vol % ABG Base Excess 5.6 H (-2-2) mmol/L ABG Methemoglobin 0.7 (0-2) % Rubin Test Present Hemoglobin 13.0 (12.0-16.0) G/DL Carboxyhemoglobin 0.8 (0-4) % O2 Delivery Device Nasal cannula Liter Flow 2.00 L/M Critical Value No Sodium (136-145) meq/L Potassium (3.5-5.1) meq/L Chloride (98-107) meq/L Carbon Dioxide (21.0-32.0) meq/L Anion Gap (5-15) meq/L BUN (7-18) mg/dL Creatinine (0.60-1.30) mg/dL Estimated GFR (>89) mL/min POC Glucose (68-110) mg/dl Random Glucose (74-106) mg/dL Hemoglobin A1c (4.3-6.0) % Calcium (8.5-10.1) mg/dL Total Bilirubin (0.2-1.0) mg/dL AST (15-37) U/L ALT (12-78) U/L Alkaline Phosphatase (45-117) U/L Total Creatine Kinase (39-308) U/L CK-MB (CK-2) (0.5-3.6) ng/mL Troponin I (0.02-0.05) ng/mL B-Natriuretic Peptide (0-100) pg/mL Total Protein (6.4-8.2) g/dL Albumin (3.4-5.0) g/dL 07/07/18 07/07/18 07/08/18 Range/Units 15:10 17:10 07:38 WBC 6.5 (4.0-11.0) th/mm3 RBC 4.25 L (4.50-5.90) mil/mm3 Hgb 12.8 L (13.0-17.0) gm/dL Hct 36.2 L (39.0-51.0) % MCV 85.3 (80.0-100.0) fL MCH 30.1 (27.0-34.0) pg MCHC 35.3 (32.0-36.0) % RDW 15.1 (11.6-17.2) % Plt Count 261 (150-450) th/mm3 MPV 8.4 (7.0-11.0) fL Neut % (Auto) 80.4 H (16.0-70.0) % Lymph % (Auto) 15.3 (9.0-44.0) % [place] % (Auto) 3.2 (0.0-8.0) % Eos % (Auto) 0.2 (0.0-4.0) % Baso % (Auto) 0.9 (0.0-2.0) % Neut # (Auto) 5.2 (1.8-7.7) th/mm3 Lymph # (Auto) 1.0 (1.0-4.8) th/mm3 [place] # (Auto) 0.2 (0.0-0.9) th/mm3 Eos # (Auto) 0.0 (0.0-0.4) th/mm3 Baso # (Auto) 0.1 (0.0-0.2) th/mm3 WBC Differential . Differential Comment Auto diff final PT (9.8-11.6) sec INR Ratio APTT (24.3-30.1) sec Puncture Site Patient Temperature O2 Saturation (90-100) % ABG pH (7.380-7.420) ABG pCO2 (38-42) mmHg ABG pO2 (61-120) mmHg ABG HCO3 (22-26) mmol/L ABG O2 Content (12.0-20.0) Vol % ABG Base Excess (-2-2) mmol/L ABG Methemoglobin (0-2) % Rubin Test Hemoglobin (12.0-16.0) G/DL Carboxyhemoglobin (0-4) % O2 Delivery Device Liter Flow L/M Critical Value Sodium 137 (136-145) meq/L Potassium 3.3 L (3.5-5.1) meq/L Chloride 95 L (98-107) meq/L Carbon Dioxide 31.5 (21.0-32.0) meq/L Anion Gap 11 (5-15) meq/L BUN 12 (7-18) mg/dL Creatinine 1.06 (0.60-1.30) mg/dL Estimated GFR 83 L (>89) mL/min POC Glucose (68-110) mg/dl Random Glucose 237 H (74-106) mg/dL Hemoglobin A1c (4.3-6.0) % Calcium 8.6 (8.5-10.1) mg/dL Total Bilirubin 1.1 H (0.2-1.0) mg/dL AST 20 (15-37) U/L ALT 18 (12-78) U/L Alkaline Phosphatase 121 H (45-117) U/L Total Creatine Kinase 149 (39-308) U/L CK-MB (CK-2) 3.3 (0.5-3.6) ng/mL Troponin I Less than 0.02 L (0.02-0.05) ng/mL B-Natriuretic Peptide 3 (0-100) pg/mL Total Protein 7.0 (6.4-8.2) g/dL Albumin 3.2 L (3.4-5.0) g/dL 07/08/18 07/08/18 07/08/18 Range/Units 07:38 08:51 13:54 WBC (4.0-11.0) th/mm3 RBC (4.50-5.90) mil/mm3 Hgb (13.0-17.0) gm/dL Hct (39.0-51.0) % MCV (80.0-100.0) fL MCH (27.0-34.0) pg MCHC (32.0-36.0) % RDW (11.6-17.2) % Plt Count (150-450) th/mm3 MPV (7.0-11.0) fL Neut % (Auto) (16.0-70.0) % Lymph % (Auto) (9.0-44.0) % [place] % (Auto) (0.0-8.0) % Eos % (Auto) (0.0-4.0) % Baso % (Auto) (0.0-2.0) % Neut # (Auto) (1.8-7.7) th/mm3 Lymph # (Auto) (1.0-4.8) th/mm3 [place] # (Auto) (0.0-0.9) th/mm3 Eos # (Auto) (0.0-0.4) th/mm3 Baso # (Auto) (0.0-0.2) th/mm3 WBC Differential Differential Comment PT (9.8-11.6) sec INR Ratio APTT (24.3-30.1) sec Puncture Site Patient Temperature O2 Saturation (90-100) % ABG pH (7.380-7.420) ABG pCO2 (38-42) mmHg ABG pO2 (61-120) mmHg ABG HCO3 (22-26) mmol/L ABG O2 Content (12.0-20.0) Vol % ABG Base Excess (-2-2) mmol/L ABG Methemoglobin (0-2) % Rubin Test Hemoglobin (12.0-16.0) G/DL Carboxyhemoglobin (0-4) % O2 Delivery Device Liter Flow L/M Critical Value Sodium 137 (136-145) meq/L Potassium 3.6 (3.5-5.1) meq/L Chloride 97 L (98-107) meq/L Carbon Dioxide 26.2 (21.0-32.0) meq/L Anion Gap 14 (5-15) meq/L BUN 15 (7-18) mg/dL Creatinine 1.03 (0.60-1.30) mg/dL Estimated GFR 86 L (>89) mL/min POC Glucose 386 H 122 H (68-110) mg/dl Random Glucose 290 H (74-106) mg/dL Hemoglobin A1c (4.3-6.0) % Calcium 8.6 (8.5-10.1) mg/dL Total Bilirubin 0.8 (0.2-1.0) mg/dL AST 10 L (15-37) U/L ALT 19 (12-78) U/L Alkaline Phosphatase 110 (45-117) U/L Total Creatine Kinase (39-308) U/L CK-MB (CK-2) (0.5-3.6) ng/mL Troponin I (0.02-0.05) ng/mL B-Natriuretic Peptide (0-100) pg/mL Total Protein 6.8 (6.4-8.2) g/dL Albumin 3.1 L (3.4-5.0) g/dL 07/08/18 07/08/18 07/09/18 Range/Units 17:17 21:06 07:38 WBC (4.0-11.0) th/mm3 RBC (4.50-5.90) mil/mm3 Hgb (13.0-17.0) gm/dL Hct (39.0-51.0) % MCV (80.0-100.0) fL MCH (27.0-34.0) pg MCHC (32.0-36.0) % RDW (11.6-17.2) % Plt Count (150-450) th/mm3 MPV (7.0-11.0) fL Neut % (Auto) (16.0-70.0) % Lymph % (Auto) (9.0-44.0) % [place] % (Auto) (0.0-8.0) % Eos % (Auto) (0.0-4.0) % Baso % (Auto) (0.0-2.0) % Neut # (Auto) (1.8-7.7) th/mm3 Lymph # (Auto) (1.0-4.8) th/mm3 [place] # (Auto) (0.0-0.9) th/mm3 Eos # (Auto) (0.0-0.4) th/mm3 Baso # (Auto) (0.0-0.2) th/mm3 WBC Differential Differential Comment PT (9.8-11.6) sec INR Ratio APTT (24.3-30.1) sec Puncture Site Patient Temperature O2 Saturation (90-100) % ABG pH (7.380-7.420) ABG pCO2 (38-42) mmHg ABG pO2 (61-120) mmHg ABG HCO3 (22-26) mmol/L ABG O2 Content (12.0-20.0) Vol % ABG Base Excess (-2-2) mmol/L ABG Methemoglobin (0-2) % Rubin Test Hemoglobin (12.0-16.0) G/DL Carboxyhemoglobin (0-4) % O2 Delivery Device Liter Flow L/M Critical Value Sodium (136-145) meq/L Potassium (3.5-5.1) meq/L Chloride (98-107) meq/L Carbon Dioxide (21.0-32.0) meq/L Anion Gap (5-15) meq/L BUN (7-18) mg/dL Creatinine (0.60-1.30) mg/dL Estimated GFR (>89) mL/min POC Glucose 261 H 300 H 346 H (68-110) mg/dl Random Glucose (74-106) mg/dL Hemoglobin A1c (4.3-6.0) % Calcium (8.5-10.1) mg/dL Total Bilirubin (0.2-1.0) mg/dL AST (15-37) U/L ALT (12-78) U/L Alkaline Phosphatase (45-117) U/L Total Creatine Kinase (39-308) U/L CK-MB (CK-2) (0.5-3.6) ng/mL Troponin I (0.02-0.05) ng/mL B-Natriuretic Peptide (0-100) pg/mL Total Protein (6.4-8.2) g/dL Albumin (3.4-5.0) g/dL 07/09/18 07/09/18 07/09/18 Range/Units 10:23 11:02 16:25 WBC (4.0-11.0) th/mm3 RBC (4.50-5.90) mil/mm3 Hgb (13.0-17.0) gm/dL Hct (39.0-51.0) % MCV (80.0-100.0) fL MCH (27.0-34.0) pg MCHC (32.0-36.0) % RDW (11.6-17.2) % Plt Count (150-450) th/mm3 MPV (7.0-11.0) fL Neut % (Auto) (16.0-70.0) % Lymph % (Auto) (9.0-44.0) % [place] % (Auto) (0.0-8.0) % Eos % (Auto) (0.0-4.0) % Baso % (Auto) (0.0-2.0) % Neut # (Auto) (1.8-7.7) th/mm3 Lymph # (Auto) (1.0-4.8) th/mm3 [place] # (Auto) (0.0-0.9) th/mm3 Eos # (Auto) (0.0-0.4) th/mm3 Baso # (Auto) (0.0-0.2) th/mm3 WBC Differential Differential Comment PT (9.8-11.6) sec INR Ratio APTT (24.3-30.1) sec Puncture Site Patient Temperature O2 Saturation (90-100) % ABG pH (7.380-7.420) ABG pCO2 (38-42) mmHg ABG pO2 (61-120) mmHg ABG HCO3 (22-26) mmol/L ABG O2 Content (12.0-20.0) Vol % ABG Base Excess (-2-2) mmol/L ABG Methemoglobin (0-2) % Rubin Test Hemoglobin (12.0-16.0) G/DL Carboxyhemoglobin (0-4) % O2 Delivery Device Liter Flow L/M Critical Value Sodium (136-145) meq/L Potassium (3.5-5.1) meq/L Chloride (98-107) meq/L Carbon Dioxide (21.0-32.0) meq/L Anion Gap (5-15) meq/L BUN (7-18) mg/dL Creatinine (0.60-1.30) mg/dL Estimated GFR (>89) mL/min POC Glucose 347 H 163 H (68-110) mg/dl Random Glucose (74-106) mg/dL Hemoglobin A1c 9.9 H (4.3-6.0) % Calcium (8.5-10.1) mg/dL Total Bilirubin (0.2-1.0) mg/dL AST (15-37) U/L ALT (12-78) U/L Alkaline Phosphatase (45-117) U/L Total Creatine Kinase (39-308) U/L CK-MB (CK-2) (0.5-3.6) ng/mL Troponin I (0.02-0.05) ng/mL B-Natriuretic Peptide (0-100) pg/mL Total Protein (6.4-8.2) g/dL Albumin (3.4-5.0) g/dL 07/09/18 07/09/18 07/09/18 Range/Units 19:08 19:18 23:06 WBC (4.0-11.0) th/mm3 RBC (4.50-5.90) mil/mm3 Hgb (13.0-17.0) gm/dL Hct (39.0-51.0) % MCV (80.0-100.0) fL MCH (27.0-34.0) pg MCHC (32.0-36.0) % RDW (11.6-17.2) % Plt Count (150-450) th/mm3 MPV (7.0-11.0) fL Neut % (Auto) (16.0-70.0) % Lymph % (Auto) (9.0-44.0) % [place] % (Auto) (0.0-8.0) % Eos % (Auto) (0.0-4.0) % Baso % (Auto) (0.0-2.0) % Neut # (Auto) (1.8-7.7) th/mm3 Lymph # (Auto) (1.0-4.8) th/mm3 [place] # (Auto) (0.0-0.9) th/mm3 Eos # (Auto) (0.0-0.4) th/mm3 Baso # (Auto) (0.0-0.2) th/mm3 WBC Differential Differential Comment PT (9.8-11.6) sec INR Ratio APTT (24.3-30.1) sec Puncture Site Right radial Patient Temperature 98.6 O2 Saturation 94 (90-100) % ABG pH 7.48 H (7.380-7.420) ABG pCO2 26 L (38-42) mmHg ABG pO2 80 (61-120) mmHg ABG HCO3 19 L (22-26) mmol/L ABG O2 Content 16.3 (12.0-20.0) Vol % ABG Base Excess -3.8 L (-2-2) mmol/L ABG Methemoglobin 1.1 (0-2) % Rubin Test Present Hemoglobin 12.3 (12.0-16.0) G/DL Carboxyhemoglobin 0.8 (0-4) % O2 Delivery Device Nasal cannula Liter Flow 3.00 L/M Critical Value No Sodium (136-145) meq/L Potassium (3.5-5.1) meq/L Chloride (98-107) meq/L Carbon Dioxide (21.0-32.0) meq/L Anion Gap (5-15) meq/L BUN (7-18) mg/dL Creatinine (0.60-1.30) mg/dL Estimated GFR (>89) mL/min POC Glucose 220 H 174 H (68-110) mg/dl Random Glucose (74-106) mg/dL Hemoglobin A1c (4.3-6.0) % Calcium (8.5-10.1) mg/dL Total Bilirubin (0.2-1.0) mg/dL AST (15-37) U/L ALT (12-78) U/L Alkaline Phosphatase (45-117) U/L Total Creatine Kinase (39-308) U/L CK-MB (CK-2) (0.5-3.6) ng/mL Troponin I (0.02-0.05) ng/mL B-Natriuretic Peptide (0-100) pg/mL Total Protein (6.4-8.2) g/dL Albumin (3.4-5.0) g/dL 07/10/18 07/10/18 07/10/18 Range/Units 07:50 11:53 16:43 WBC (4.0-11.0) th/mm3 RBC (4.50-5.90) mil/mm3 Hgb (13.0-17.0) gm/dL Hct (39.0-51.0) % MCV (80.0-100.0) fL MCH (27.0-34.0) pg MCHC (32.0-36.0) % RDW (11.6-17.2) % Plt Count (150-450) th/mm3 MPV (7.0-11.0) fL Neut % (Auto) (16.0-70.0) % Lymph % (Auto) (9.0-44.0) % [place] % (Auto) (0.0-8.0) % Eos % (Auto) (0.0-4.0) % Baso % (Auto) (0.0-2.0) % Neut # (Auto) (1.8-7.7) th/mm3 Lymph # (Auto) (1.0-4.8) th/mm3 [place] # (Auto) (0.0-0.9) th/mm3 Eos # (Auto) (0.0-0.4) th/mm3 Baso # (Auto) (0.0-0.2) th/mm3 WBC Differential Differential Comment PT (9.8-11.6) sec INR Ratio APTT (24.3-30.1) sec Puncture Site Patient Temperature O2 Saturation (90-100) % ABG pH (7.380-7.420) ABG pCO2 (38-42) mmHg ABG pO2 (61-120) mmHg ABG HCO3 (22-26) mmol/L ABG O2 Content (12.0-20.0) Vol % ABG Base Excess (-2-2) mmol/L ABG Methemoglobin (0-2) % Rubin Test Hemoglobin (12.0-16.0) G/DL Carboxyhemoglobin (0-4) % O2 Delivery Device Liter Flow L/M Critical Value Sodium (136-145) meq/L Potassium (3.5-5.1) meq/L Chloride (98-107) meq/L Carbon Dioxide (21.0-32.0) meq/L Anion Gap (5-15) meq/L BUN (7-18) mg/dL Creatinine (0.60-1.30) mg/dL Estimated GFR (>89) mL/min POC Glucose 252 H 280 H 161 H (68-110) mg/dl Random Glucose (74-106) mg/dL Hemoglobin A1c (4.3-6.0) % Calcium (8.5-10.1) mg/dL Total Bilirubin (0.2-1.0) mg/dL AST (15-37) U/L ALT (12-78) U/L Alkaline Phosphatase (45-117) U/L Total Creatine Kinase (39-308) U/L CK-MB (CK-2) (0.5-3.6) ng/mL Troponin I (0.02-0.05) ng/mL B-Natriuretic Peptide (0-100) pg/mL Total Protein (6.4-8.2) g/dL Albumin (3.4-5.0) g/dL 07/10/18 Range/Units 21:19 WBC (4.0-11.0) th/mm3 RBC (4.50-5.90) mil/mm3 Hgb (13.0-17.0) gm/dL Hct (39.0-51.0) % MCV (80.0-100.0) fL MCH (27.0-34.0) pg MCHC (32.0-36.0) % RDW (11.6-17.2) % Plt Count (150-450) th/mm3 MPV (7.0-11.0) fL Neut % (Auto) (16.0-70.0) % Lymph % (Auto) (9.0-44.0) % [place] % (Auto) (0.0-8.0) % Eos % (Auto) (0.0-4.0) % Baso % (Auto) (0.0-2.0) % Neut # (Auto) (1.8-7.7) th/mm3 Lymph # (Auto) (1.0-4.8) th/mm3 [place] # (Auto) (0.0-0.9) th/mm3 Eos # (Auto) (0.0-0.4) th/mm3 Baso # (Auto) (0.0-0.2) th/mm3 WBC Differential Differential Comment PT (9.8-11.6) sec INR Ratio APTT (24.3-30.1) sec Puncture Site Patient Temperature O2 Saturation (90-100) % ABG pH (7.380-7.420) ABG pCO2 (38-42) mmHg ABG pO2 (61-120) mmHg ABG HCO3 (22-26) mmol/L ABG O2 Content (12.0-20.0) Vol % ABG Base Excess (-2-2) mmol/L ABG Methemoglobin (0-2) % Rubin Test Hemoglobin (12.0-16.0) G/DL Carboxyhemoglobin (0-4) % O2 Delivery Device Liter Flow L/M Critical Value Sodium (136-145) meq/L Potassium (3.5-5.1) meq/L Chloride (98-107) meq/L Carbon Dioxide (21.0-32.0) meq/L Anion Gap (5-15) meq/L BUN (7-18) mg/dL Creatinine (0.60-1.30) mg/dL Estimated GFR (>89) mL/min POC Glucose 169 H (68-110) mg/dl Random Glucose (74-106) mg/dL Hemoglobin A1c (4.3-6.0) % Calcium (8.5-10.1) mg/dL Total Bilirubin (0.2-1.0) mg/dL AST (15-37) U/L ALT (12-78) U/L Alkaline Phosphatase (45-117) U/L Total Creatine Kinase (39-308) U/L CK-MB (CK-2) (0.5-3.6) ng/mL Troponin I (0.02-0.05) ng/mL B-Natriuretic Peptide (0-100) pg/mL Total Protein (6.4-8.2) g/dL Albumin (3.4-5.0) g/dL Imaging Data Radiologist's impression: Chest X-Ray 07/07/18 14:56 CONCLUSION: Negative examination. Venous Doppler Study 07/07/18 14:56 CONCLUSION: 1. The study is negative for lower extremity deep venous thrombosis. Chest CTA 07/07/18 14:57 CONCLUSION: 1. No pulmonary embolus. 2. Diffuse chronic bronchiectasis and bronchiolectasis. No acute pneumonia seen. 3. Coronary artery calcification. 4. Cysts and a nonobstructing stone of the visualized right kidney. Apparent interim passage of a previously seen left upper pole renal stone. Chest CTA 07/09/18 00:00 CONCLUSION: 1. The study is negative for pulmonary embolism. Chest X-Ray 07/09/18 19:50 CONCLUSION: The lungs are clear. ECG Data Attestation: I personally reviewed and interpreted this ECG as follows: Interpretation: Sinus tachycardia [address]-T wave abnormalities MT 141 ms QTc 396 ms no signs of acute ischemia. Normal asked Discharge Plan Discharge Disposition Patient Disposition: 30 Still Patient Discharge Condition Condition: Fair Discharge Details Diagnosis: Asthma exacerbation in COPD Physicians Team ED Provider: Elliott Botello Primary Care Provider: UNKNOWN, Attending Provider: Jerry Guzman Other Providers: [employer] Status ED Status: Left Department Discharge Information Discharge Date/Time: 07/08/18 00:23
--- NOTE | 2018-07-07 15:31 | XR ---
EXAM DATE: 07/07/2018 2:56 PM EDT AGE/SEX: 72 years / Male INDICATIONS: COPD. CLINICAL DATA: This is the patient's initial encounter. Patient reports that signs and symptoms have been present for 4 - 6 days and indicates a pain score of 0/10. MEDICAL/SURGICAL HISTORY: . Cardiovascular disease. Chronic obstructive pulmonary disease. Christophe roesophageal reflux disease.Renal disease None. COMPARISON: [facility] – [place], CHEST SINGLE AP, 11/21/2017. . FINDINGS: A single AP view of the chest demonstrates the lungs to be symmetrically aerated without evidence of mass, infiltrate or effusion. The cardiomediastinal contours are unremarkable. Osseous structures a re intact. CONCLUSION: Negative examination. Electronically signed by: Derik Carney MD 07/07/2018 3:30 PM EDT
--- NOTE | 2018-07-07 15:42 | US ---
EXAM DATE: 07/07/2018 2:56 PM EDT AGE/SEX: 72 years / Male INDICATIONS: Lower extremity pain. CLINICAL DATA: This is the patient's initial encounter. Patient reports that signs and symptoms have been present for 1 week and indicates a pain score of 0/10. MEDICAL/SURGICAL HISTORY: Diabetes. Hypertension. Hyperlipidemia. None. COMPARISON: [facility] – [place] LEG BILATERAL VENOUS DOPPLER, 03/30/2016. . TECHNIQUE: Venous ultrasound of both lower extremities was performed from the inguinal ligament to t he proximal calf. Real-time, color Doppler and spectral tracing, compression and augmentation techni ques were used. FINDINGS: Normal compression of the deep venous system from the inguinal region to the proximal calf . No echogenic clot is seen. Normal response of the venous system to augmentation and respiration. CONCLUSION: 1. The study is negative for lower extremity deep venous thrombosis. Electronically signed by: Derik Carney MD 07/07/2018 3:41 PM EDT
[2018-07-07 15:55] LABS: Baso # (Auto) 0.1 th/mm3 (0.0-0.2); Baso % (Auto) 1.2 % (0.0-2.0); Eos # (Auto) 2.7 th/mm3 (0.0-0.4); Eos % (Auto) 23.2 % (0.0-4.0); Hematocrit 39.4 % (39.0-51.0); Hemoglobin 13.4 gm/dL (13.0-17.0); Lymph # (Auto) 1.6 th/mm3 (1.0-4.8); Lymph % (Auto) 14.1 % (9.0-44.0); Mean Corpuscular HGB Conc 34.2 % (32.0-36.0); Mean Corpuscular Hemoglobin 29.3 pg (27.0-34.0); Mean Corpuscular Volume 85.8 fL (80.0-100.0); Mean Platelet Volume 8.5 fL (7.0-11.0); Mono # (Auto) 1.2 th/mm3 (0.0-0.9); Mono % (Auto) 10.1 % (0.0-8.0); Neut # (Auto) 5.9 th/mm3 (1.8-7.7); Neut % (Auto) 51.4 % (16.0-70.0); Platelet Count 300 th/mm3 (150-450); Red Blood Count 4.59 mil/mm3 (4.50-5.90); Red Cell Distribution Width 15.6 % (11.6-17.2); White Blood Count 11.5 th/mm3 (4.0-11.0)
[2018-07-07 16:06] LABS: Activated Partial Thrombo Time 26.7 sec (24.3-30.1)
[2018-07-07 18:12] LABS: Alanine Aminotransferase 18 U/L (12-78); Albumin 3.2 g/dL (3.4-5.0); Anion Gap 11 meq/L (5-15); Blood Urea Nitrogen 12 mg/dL (7-18); Calcium 8.6 mg/dL (8.5-10.1); Carbon Dioxide 31.5 meq/L (21.0-32.0); Chloride 95 meq/L (98-107); Glomerular Filtration Rate 83 mL/min (>89); Glucose,Random 237 mg/dL (74-106); Sodium 137 meq/L (136-145)
[2018-07-07 18:20] LABS: Alkaline Phosphatase 121 U/L (45-117); Creatine Kinase 149 U/L (39-308)
[2018-07-07 18:26] LABS: Aspartate Aminotransferase 20 U/L (15-37); Potassium 3.3 meq/L (3.5-5.1)
[2018-07-07] MEDS ORDERED: Butalbital/APAP/Caff 50/325/40 MG Tablet PO ONE (18:31)
[2018-07-07] MEDS ORDERED: Sod Chloride 0.9% Inj 1,000 ML IV.SIG ONE (18:33)
[2018-07-07 18:39] LABS: Creatine Kinase MB 3.3 ng/mL (0.5-3.6)
--- NOTE | 2018-07-07 21:21 | CT ---
EXAM DATE: 07/07/2018 6:34 PM EDT AGE/SEX: 72 years / Male INDICATIONS: Shortness of breath and congestion; rule out pulmonary embolus. CLINICAL DATA: This is the patient's initial encounter. Patient reports that signs and symptoms have been present for 1 day and indicates a pain score of 3/10. MEDICAL/SURGICAL HISTORY: Chronic obstructive pulmonary disease. None. RADIATION DOSE: 9.27 CTDI (mGy) [place] [facility] [place]21/2017. . TECHNIQUE: Volumetric scanning was performed using a multi-row detector CT scanner during bolus infu evie of 72 ml Omnipaque 350 (iohexol) nonionic water-soluble contrast as a single exam dose. The kaye a was post processed with a variety of visualization algorithms including full volume maximum intensi ty projection and sliding thin slab reformation. Using automated exposure control and adjustment of the mA and/or kV according to patient size, radiation dose was kept as low as reasonably achievable t o obtain optimal diagnostic quality images. DICOM format image data is available electronically for review and comparison. FINDINGS: There is no pulmonary embolus. Mild peribronchial thickening and bronchiectasis seen diffusely on both sides, similar to before. Pre viously seen areas of lower lobe predominant parenchymal consolidation have resolved. There is now mi nimal bibasilar atelectasis. No pleural effusion. No pneumothorax. Heart size stable, within normal limits. Coronary artery calcification again noted. There is no lymph adenopathy seen. A cyst and a 4 mm nonobstructing stone seen of the visualized right kidney. No left renal stone demon strated; previously seen 3 mm stone of the upper pole is no longer seen and presumably has passed in the interim. I don't see any hydronephrosis or hydroureter of the visualized left kidney. CONCLUSION: 1. No pulmonary embolus. 2. Diffuse chronic bronchiectasis and bronchiolectasis. No acute pneumonia seen. 3. Coronary artery calcification. 4. Cysts and a nonobstructing stone of the visualized right kidney. Apparent interim passage of a pr eviously seen left upper pole renal stone. Electronically signed by: Florencio Marques MD 07/07/2018 9:20 PM EDT
[2018-07-07] MEDS ORDERED: Bisacodyl 10 MG Supp RECTAL PRN (22:18)
[2018-07-07] MEDS ORDERED: Acetaminophen 325 MG Tablet PO PRN (22:18)
[2018-07-07] MEDS ORDERED: Dextrose 50% in Water 50 ML Vial IV.PUSH PRN (22:18)
--- NOTE | 2018-07-07 22:19 | P.HPIM ---
History of Present Illness Primary Care Physician: UNKNOWN History of Present Illness: This is a 72-year-old male with a PMH of HTN, COPD, h/o PE/DVT, A-fib and DM who presented to the ER w/ c/o SOB and wheezing. Reports symptoms have been ongoing for approx 3-4wks, now progressively worse since yesterday. Recent admit to hospital in [facility] for COPD 3wks ago, states he had improvement , however decompensated once he got back to [facility] approx 1wk ago. Denies fever or chills. Does report non-productive cough and nasal congestion. On arrival, BP 132/65, HR 122, O2 sat 93% on RA, Afebrile. WBC 11.5. ABG pH 7.46 , PCO2 43, PO2 106 on 2L NC. Chemistry essentially unremarkable. Troponin negative. CXR negative. LE Doppler negative for DVT. CTA Chest negative for PE, diffuse chronic bronchiectasis and bronchiolectasis, no pneumonia seen. S/ p Solu-Medrol and DuoNeb in ER w/ some improvement, however persistent SOB and wheezing. - Diagnosis (1) COPD (chronic obstructive pulmonary disease) (2) Hx of pulmonary embolus (3) DM (diabetes mellitus) Review of Systems PAST FAMILY HISTORY: Reviewed. No h/o DM or CAD All other systems reviewed negative except as stated in HPI PMFSH - History History Provided By: Patient, Medical Record - Tobacco History Smoking Status: Former smoker Tobacco Type: Cigarettes - Alcohol History How Often Do You Have a Drink Containing Alcohol: Never - Substance Use History Substance History: No History of Abuse - Travel History Recent Travel in the [facility] Within the Last 8 Weeks: No Recent Travel Out of the Country Within the Last 8 Weeks: No - Immunization History Tetanus Immunization: Unsure Hx Influenza Vaccine This Season: No Medications and Allergies Allergies Allergy/AdvReac Type Severity Reaction Status Date / Time tiotropium Allergy Severe Unverified 11/21/17 01:30 SPIRIVA Allergy Unknown TONGUE Uncoded 03/15/14 18:29 SWELLING Home Medications Medication Instructions Recorded Confirmed Type albuterol sulfate [Ventolin HFA] 2 puff INHALATION Q4-6H PRN 07/07/18 07/07/18 History hydrochlorothiazide 25 mg PO DAILY 07/07/18 07/07/18 History insulin detemir U-100 [Levemir 42 unit SUBCUT QPM 07/07/18 07/07/18 History FlexTouch U-100 Insuln] levofloxacin 500 mg PO DAILY 07/07/18 07/07/18 History metformin 500 mg PO BID 07/07/18 07/07/18 History metoprolol tartrate 12.5 mg PO DAILY 07/07/18 07/07/18 History prednisone 40 mg PO DAILY 07/07/18 07/07/18 History Exam Vital signs: Vital Signs 07/07/18 13:17 07/07/18 14:51 07/07/18 15:14 Temperature 98.2 F Pulse Rate 122 H 114 H 110 H Respiratory Rate 18 22 Blood Pressure 132/65 150/106 H Pulse Oximetry 93 L 94 L 96 07/07/18 15:23 07/07/18 18:00 07/07/18 20:25 Temperature Pulse Rate 110 H 100 H 100 H Respiratory Rate 22 22 22 Blood Pressure 129/69 Pulse Oximetry 94 L Intake & Output 07/07/18 07/07/18 07/08/18 06:59 18:59 06:59 Weight 61.235 kg Narrative: PE: GENERAL: Pleasant elderly black male in no acute distress. No dyspnea with speech SKIN: Focused skin assessment warm and dry. HEENT: PERRLA, EOMI. No scleral icterus or conjunctival pallor. No lid lag or facial droop. CARDIOVASCULAR: Regular rate and rhythm. No obvious murmurs to auscultation. No chest tenderness to palpation. RESPIRATORY: No obvious rhonchi. Occasional wheezing. Clear to auscultation. Breath sounds equal bilaterally. GASTROINTESTINAL: Abdomen soft, non-tender, nondistended. BS normal. MUSCULOSKELETAL: Extremities without clubbing, cyanosis, or edema. No obvious deformities. NEUROLOGICAL: Awake, alert and oriented x4. No focal neurologic deficits. Moving both upper and lower extremities spontaneously. PSYCHIATRIC: Appropriate mood and affect. Insight and judgment normal. Results - Labs CBC & Chem 7: 07/07/18 15:10 07/07/18 17:10 Labs: Short CBC 07/07/18 Range/Units 15:10 WBC 11.5 H (4.0-11.0) th/mm3 Hgb 13.4 (13.0-17.0) gm/dL Hct 39.4 (39.0-51.0) % Plt Count 300 (150-450) th/mm3 BMP 07/07/18 17:10 Sodium 137 Potassium 3.3 L Chloride 95 L Carbon Dioxide 31.5 BUN 12 Creatinine 1.06 Calcium 8.6 Cardiac Enzymes 07/07/18 Range/Units 17:10 Total Creatine Kinase 149 (39-308) U/L CK-MB (CK-2) 3.3 (0.5-3.6) ng/mL Troponin I Less than 0.02 L (0.02-0.05) ng/mL Liver Function 07/07/18 Range/Units 17:10 Total Bilirubin 1.1 H (0.2-1.0) mg/dL AST 20 (15-37) U/L ALT 18 (12-78) U/L Alkaline Phosphatase 121 H (45-117) U/L Albumin 3.2 L (3.4-5.0) g/dL - Imaging Impressions Chest X-Ray 07/07/18 14:56 CONCLUSION: Negative examination. Venous Doppler Study 07/07/18 14:56 CONCLUSION: 1. The study is negative for lower extremity deep venous thrombosis. Chest CTA 07/07/18 14:57 CONCLUSION: 1. No pulmonary embolus. 2. Diffuse chronic bronchiectasis and bronchiolectasis. No acute pneumonia seen. 3. Coronary artery calcification. 4. Cysts and a nonobstructing stone of the visualized right kidney. Apparent interim passage of a previously seen left upper pole renal stone. Caprini VTE Risk Assessment Caprini VTE Risk Assessment: No/Low Risk (score <= 1) Caprini Risk Assessment Model: Point Value = 1 Point Value = 2 Point Value = 3 Point Value = 5 Age 41-60 Minor surgery BMI > 25 kg/m2 Swollen legs Varicose veins or History of unexplained or recurrent spontaneous Oral contraceptives or hormone replacement Sepsis (< 1 month) Serious lung disease, including pneumonia (< 1 month) Abnormal pulmonary function Acute myocardial infarction Congestive heart failure (< 1 month) History of inflammatory bowel disease Medical patient at bed rest Age 61-74 Arthroscopic surgery Major open surgery (> 45 min) Laparoscopic surgery (> 45 min) Malignancy Confined to bed (> 72 hours) Immobilizing plaster cast Central venous access Age >= 75 History of VTE Family history of VTE Factor V Leiden Prothrombin [id number] Lupus anticoagulant Anticardiolipin antibodies Elevated serum homocysteine Heparin-induced thrombocytopenia Other congenital or acquired thrombophilia Stroke (< 1 month) Elective arthroplasty Hip, pelvis, or leg fracture Acute spinal cord injury (< 1 month) Prophylaxis Regimen: Total Risk Factor Score Risk Level Prophylaxis Regimen 0-1 Low Early ambulation 2 Moderate Order ONE of the following: *Sequential Compression Device (SCD) *Heparin 5000 units SQ BID 3-4 Higher Order ONE of the following medications: *Heparin 5000 units SQ TID *Enoxaparin/Lovenox 40 mg SQ daily (WT < 150 kg, CrCl > 30 mL/min) *Enoxaparin/Lovenox 30 mg SQ daily (WT < 150 kg, CrCl > 10-29 mL/min) *Enoxaparin/Lovenox 30 mg SQ BID (WT < 150 kg, CrCl > 30 mL/min) AND/OR *Sequential Compression Device (SCD) 5 or more Highest Order ONE of the following medications: *Heparin 5000 units SQ TID (Preferred with Epidurals) *Enoxaparin/Lovenox 40 mg SQ daily (WT < 150 kg, CrCl > 30 mL/min) *Enoxaparin/Lovenox 30 mg SQ daily (WT < 150 kg, CrCl > 10-29 mL/min) *Enoxaparin/Lovenox 30 mg SQ BID (WT < 150 kg, CrCl > 30 mL/min) AND *Sequential Compression Device (SCD) Assessment and Plan - Assessment (1) COPD (chronic obstructive pulmonary disease) Code(s): J44.9 - Chronic obstructive pulmonary disease, unspecified Status: Acute (2) Hx of pulmonary embolus Code(s): Z86.711 - Personal history of pulmonary embolism Status: Acute (3) DM (diabetes mellitus) Code(s): E11.9 - Type 2 diabetes mellitus without complications Status: Acute - Plan A/P: 1. COPD: Chronic Respiratory Failure w/ Acute Exacerbation. Severe. S/p Solu -Medrol and Albuterol w/ some improvement, however persistent symptoms. CXR w/ no acute findings, images reviewed. Continue Solu-Medrol, Albuterol q2h prn and q4h, Symbicort, Mucinex. Monitor O2. 2. H/o PE/DVT: LE Doppler negative for DVT, CTA Chest negative for PE, images reviewed. 3. DM: Hold Metformin, sliding scale w/ Accu-Cheks 4. DVT Prophylaxis: SCD/Teds 5. Social work for d/c planning as needed 6. Case discussed w/ ER physician at length, labs/records/imaging reviewed by me
[2018-07-07] MEDS: MethylPREDNISolone Sod Succinate Inj 40 MG/ML Vial IV.PUSH SCH (23:31)
[2018-07-08] MEDS: MethylPREDNISolone Sod Succinate Inj 40 MG/ML Vial IV.PUSH SCH ×4 (06:47→21:13)
[2018-07-08 07:56] LABS: Baso # (Auto) 0.1 th/mm3 (0.0-0.2); Baso % (Auto) 0.9 % (0.0-2.0); Eos % (Auto) 0.2 % (0.0-4.0); Hematocrit 36.2 % (39.0-51.0); Hemoglobin 12.8 gm/dL (13.0-17.0); Lymph % (Auto) 15.3 % (9.0-44.0); Mean Corpuscular HGB Conc 35.3 % (32.0-36.0); Mean Corpuscular Hemoglobin 30.1 pg (27.0-34.0); Mean Corpuscular Volume 85.3 fL (80.0-100.0); Mean Platelet Volume 8.4 fL (7.0-11.0); Mono # (Auto) 0.2 th/mm3 (0.0-0.9); Mono % (Auto) 3.2 % (0.0-8.0); Neut # (Auto) 5.2 th/mm3 (1.8-7.7); Neut % (Auto) 80.4 % (16.0-70.0); Platelet Count 261 th/mm3 (150-450); Red Blood Count 4.25 mil/mm3 (4.50-5.90); Red Cell Distribution Width 15.1 % (11.6-17.2); White Blood Count 6.5 th/mm3 (4.0-11.0)
[2018-07-08 08:28] LABS: Alanine Aminotransferase 19 U/L (12-78); Albumin 3.1 g/dL (3.4-5.0); Calcium 8.6 mg/dL (8.5-10.1); Chloride 97 meq/L (98-107); Glucose,Random 290 mg/dL (74-106); Potassium 3.6 meq/L (3.5-5.1); Sodium 137 meq/L (136-145)
[2018-07-08 08:31] LABS: Alkaline Phosphatase 110 U/L (45-117); Anion Gap 14 meq/L (5-15); Aspartate Aminotransferase 10 U/L (15-37); Blood Urea Nitrogen 15 mg/dL (7-18); Carbon Dioxide 26.2 meq/L (21.0-32.0); Glomerular Filtration Rate 86 mL/min (>89); Total Protein 6.8 g/dL (6.4-8.2)
[2018-07-08] MEDS: Senna/Docusate Sodium 8.6/50 MG Tablet PO SCH ×2 (08:53→21:12)
[2018-07-08] MEDS: guaiFENesin 600 MG ER Tablet PO SCH ×2 (08:53→21:12)
[2018-07-08] MEDS: Metoprolol Tartrate 25 MG Tablet PO SCH (08:57)
--- NOTE | 2018-07-08 09:43 | P.PN ---
Subjective Interval history: Follow up for COPD exacerbation. The patient reports minimal improvement overnight. Still with significant wheezing and shortness of breath. He reports intractable dry nonproductive cough that is exacerbated by deep inspiration. Denies fevers/chills. Denies sputum production. He reports recent issues with seasonal allergies, requesting medication to help with rhinitis. Denies any other medical complaints at this time. Physical Exam Vital signs: Vital Signs 07/07/18 13:17 07/07/18 14:51 07/07/18 15:14 Temperature 98.2 F Pulse Rate 122 H 114 H 110 H Respiratory Rate 18 22 Blood Pressure 132/65 150/106 H Pulse Oximetry 93 L 94 L 96 07/07/18 15:23 07/07/18 18:00 07/07/18 20:00 Temperature Pulse Rate 110 H 100 H 110 H Respiratory Rate 22 22 20 Blood Pressure 129/69 142/87 H Pulse Oximetry 94 L 96 07/07/18 20:25 07/07/18 22:00 07/07/18 23:31 Temperature Pulse Rate 100 H 112 H 114 H Respiratory Rate 22 21 22 Blood Pressure 117/65 Pulse Oximetry 96 07/07/18 23:32 07/08/18 00:00 07/08/18 00:09 Temperature 97.8 F Pulse Rate 116 H Respiratory Rate 16 Blood Pressure 138/62 Pulse Oximetry 98 96 98 07/08/18 04:00 07/08/18 05:02 07/08/18 07:59 Temperature 97.6 F 97.5 F L Pulse Rate 110 H 95 H 106 H Respiratory Rate 16 18 16 Blood Pressure 128/61 101/68 Pulse Oximetry 97 100 07/08/18 08:17 Temperature Pulse Rate 62 Respiratory Rate 15 Blood Pressure Pulse Oximetry 99 Intake & Output 07/07/18 07/08/18 07/08/18 18:59 06:59 18:59 Intake Total 1150 / 1150 Balance 1150 / 1150 Weight 61.235 kg 61.235 kg Intake: IV 1150 / 1150 Levaquin 750 mg Premix Inj 150 150 / 150 ML @ 100 mls/hr IV.SIG Q24H [facility] Rx#:[id number] Other: Date of Last Bowel Movement 07/07/18 Weight On Admission 61.235 kg Narrative: GENERAL: Well-nourished, well-developed pleasant thin elderly AA male patient in NAD. SKIN: Warm and dry. No rash. HEENT: Normocephalic. Atraumatic. Pupils equal and round. Mucous membranes pink and moist. NECK: Supple. Trachea midline. CARDIOVASCULAR: Regular rate and rhythm. No murmur appreciated. RESPIRATORY: No accessory muscle use. Diffuse wheezing throughout all lung jewell with scattered rhonchi, poor air movement. GASTROINTESTINAL: Abdomen soft, non-tender, nondistended. Normoactive bowel sounds x4. MUSCULOSKELETAL: No obvious deformities. Extremities without clubbing, cyanosis , or edema. NEUROLOGICAL: Awake and alert. No obvious cranial nerve deficits. Motor grossly within normal limits. Moving all extremities spontaneously. Normal speech. PSYCHIATRIC: Appropriate mood and affect; insight and judgment normal. Results - Labs CBC & Chem 7: 07/08/18 07:38 07/08/18 07:38 Laboratory Results - last 24 hr 07/07/18 07/07/18 07/07/18 15:08 15:10 15:10 WBC 11.5 H RBC 4.59 Hgb 13.4 Hct 39.4 MCV 85.8 MCH 29.3 MCHC 34.2 RDW 15.6 Plt Count 300 MPV 8.5 Neut % (Auto) 51.4 Lymph % (Auto) 14.1 [place] % (Auto) 10.1 H Eos % (Auto) 23.2 H Baso % (Auto) 1.2 Neut # (Auto) 5.9 Lymph # (Auto) 1.6 [place] # (Auto) 1.2 H Eos # (Auto) 2.7 H Baso # (Auto) 0.1 WBC Differential . Differential Comment Auto diff final PT 10.0 INR 1.0 APTT 26.7 Puncture Site Right radial Patient Temperature 98.6 O2 Saturation 97 ABG pH 7.46 H ABG pCO2 43 H ABG pO2 106 ABG HCO3 30 H ABG O2 Content 17.8 ABG Base Excess 5.6 H ABG Methemoglobin 0.7 Rubin Test Present Hemoglobin 13.0 Carboxyhemoglobin 0.8 O2 Delivery Device Nasal cannula Liter Flow 2.00 Critical Value No Sodium Potassium Chloride Carbon Dioxide Anion Gap BUN Creatinine Estimated GFR POC Glucose Random Glucose Calcium Total Bilirubin AST ALT Alkaline Phosphatase Total Creatine Kinase CK-MB (CK-2) Troponin I B-Natriuretic Peptide Total Protein Albumin 07/07/18 07/07/18 07/08/18 15:10 17:10 07:38 WBC 6.5 RBC 4.25 L Hgb 12.8 L Hct 36.2 L MCV 85.3 MCH 30.1 MCHC 35.3 RDW 15.1 Plt Count 261 MPV 8.4 Neut % (Auto) 80.4 H Lymph % (Auto) 15.3 [place] % (Auto) 3.2 Eos % (Auto) 0.2 Baso % (Auto) 0.9 Neut # (Auto) 5.2 Lymph # (Auto) 1.0 [place] # (Auto) 0.2 Eos # (Auto) 0.0 Baso # (Auto) 0.1 WBC Differential . Differential Comment Auto diff final PT INR APTT Puncture Site Patient Temperature O2 Saturation ABG pH ABG pCO2 ABG pO2 ABG HCO3 ABG O2 Content ABG Base Excess ABG Methemoglobin Rubin Test Hemoglobin Carboxyhemoglobin O2 Delivery Device Liter Flow Critical Value Sodium 137 Potassium 3.3 L Chloride 95 L Carbon Dioxide 31.5 Anion Gap 11 BUN 12 Creatinine 1.06 Estimated GFR 83 L POC Glucose Random Glucose 237 H Calcium 8.6 Total Bilirubin 1.1 H AST 20 ALT 18 Alkaline Phosphatase 121 H Total Creatine Kinase 149 CK-MB (CK-2) 3.3 Troponin I Less than 0.02 L B-Natriuretic Peptide 3 Total Protein 7.0 Albumin 3.2 L 07/08/18 07/08/18 07:38 08:51 WBC RBC Hgb Hct MCV MCH MCHC RDW Plt Count MPV Neut % (Auto) Lymph % (Auto) [place] % (Auto) Eos % (Auto) Baso % (Auto) Neut # (Auto) Lymph # (Auto) [place] # (Auto) Eos # (Auto) Baso # (Auto) WBC Differential Differential Comment PT INR APTT Puncture Site Patient Temperature O2 Saturation ABG pH ABG pCO2 ABG pO2 ABG HCO3 ABG O2 Content ABG Base Excess ABG Methemoglobin Rubin Test Hemoglobin Carboxyhemoglobin O2 Delivery Device Liter Flow Critical Value Sodium 137 Potassium 3.6 Chloride 97 L Carbon Dioxide 26.2 Anion Gap 14 BUN 15 Creatinine 1.03 Estimated GFR 86 L POC Glucose 386 H Random Glucose 290 H Calcium 8.6 Total Bilirubin 0.8 AST 10 L ALT 19 Alkaline Phosphatase 110 Total Creatine Kinase CK-MB (CK-2) Troponin I B-Natriuretic Peptide Total Protein 6.8 Albumin 3.1 L Microbiology 07/07/18 15:15 Nasal Wash Influenza Types A,B Antigen - Final Negative for FLU A and B antigen Infection due to influenza A or B cannot be ruled out since the antigen present in the sample may be below the detection limit of the test. - Imaging Impressions Chest X-Ray 07/07/18 14:56 CONCLUSION: Negative examination. Venous Doppler Study 07/07/18 14:56 CONCLUSION: 1. The study is negative for lower extremity deep venous thrombosis. Chest CTA 07/07/18 14:57 CONCLUSION: 1. No pulmonary embolus. 2. Diffuse chronic bronchiectasis and bronchiolectasis. No acute pneumonia seen. 3. Coronary artery calcification. 4. Cysts and a nonobstructing stone of the visualized right kidney. Apparent interim passage of a previously seen left upper pole renal stone. Assessment and Plan - Assessment (1) COPD (chronic obstructive pulmonary disease) Code(s): J44.9 - Chronic obstructive pulmonary disease, unspecified Status: Acute (2) Hx of pulmonary embolus Code(s): Z86.711 - Personal history of pulmonary embolism Status: Acute (3) DM (diabetes mellitus) Code(s): E11.9 - Type 2 diabetes mellitus without complications Status: Acute - Plan 72-year-old male with a PMH of HTN, COPD, h/o PE/DVT, A-fib and DM who presented to the ER w/ c/o SOB and wheezing. Acute COPD Exacerbation: with Chronic Respiratory Failure. Severe. ABG with pH 7.46, pCO2 43, pO2 106, HCO3 30 -CXR w/ no acute findings, images reviewed. -Continue IV Solu-Medrol, increased to 60mg q6h -Continue Albuterol nebs q4h valentín and a2h prn -Give antibiotics with IV Levaquin -Continue Symbicort bid -Mucinex bid, Tessalon Perles tid -Started on Claritin for allergies -Continue O2 as needed to keep O2 sat >92% -Not much improved, monitor closely, will likely require additional 2-3 days of hospitalization H/o PE/DVT: old. no complaints of chest pain or leg pain/edema. -LE Doppler negative for DVT -CTA Chest negative for PE, images reviewed. DM: Chronic, however expect higher blood glucose while on steroids -Holding Metformin -sliding scale w/ Accu-Cheks DVT Prophylaxis: SCD/Teds; Lovenox sq
[2018-07-08] MEDS: Insulin NovoLOG Aspart Correctional Sugar Inj SQ SCH ×4 (11:00→21:13)
[2018-07-08] MEDS: Budesonide-Formoterol 160/4.5 MCG 6 GM Inhaler INH SCH ×2 (11:58→21:14)
[2018-07-08] MEDS: Benzonatate 100 MG Capsule PO SCH ×2 (12:01→18:50)
[2018-07-08] MEDS: Loratadine/Pseudoephedrine 12HR Tablet PO SCH ×2 (12:16→21:19)
--- NOTE | 2018-07-08 13:19 | ECG ---
Date Performed: 07/07/2018 Time Performed: 15:03:22 PTAGE: 72 years EKG: SINUS TACHYCARDIA LOW QRS VOLTAGE IN EXTREMITY LEADS ABNORMAL RHYTHM ECG INTERPRETATION BAS ED ON A DEFAULT AGE OF 40 YEARS PREVIOUS TRACING : 11/21/2017 14.00 DOCTOR: Jed Bowser Interpretating Date/Time 07/08/2018 13:13:27
[2018-07-08] MEDS: Enoxaparin Inj 40 MG/0.4 ML Syringe SQ SCH (21:13)
[2018-07-08] MEDS ORDERED: Sodium Chloride 0.9% 2 ML Flush PRN IV.FLUSH (21:59)
[2018-07-09] MEDS: Benzonatate 100 MG Capsule PO SCH ×3 (01:17→17:01)
[2018-07-09] MEDS: MethylPREDNISolone Sod Succinate Inj 40 MG/ML Vial IV.PUSH SCH ×4 (03:31→23:01)
[2018-07-09] MEDS: Senna/Docusate Sodium 8.6/50 MG Tablet PO SCH ×2 (08:35→20:46)
[2018-07-09] MEDS: guaiFENesin 600 MG ER Tablet PO SCH ×2 (08:35→20:46)
[2018-07-09] MEDS: Budesonide-Formoterol 160/4.5 MCG 6 GM Inhaler INH SCH ×2 (08:35→20:48)
[2018-07-09] MEDS: Insulin NovoLOG Aspart Correctional Sugar Inj SQ SCH ×4 (08:36→23:55)
[2018-07-09] MEDS: Metoprolol Tartrate 25 MG Tablet PO SCH (08:36)
[2018-07-09] MEDS: Sodium Chloride 0.9% 2 ML Flush BID IV.FLUSH SCH ×2 (08:36→20:47)
[2018-07-09] MEDS: Loratadine/Pseudoephedrine 12HR Tablet PO SCH ×2 (08:48→20:46)
--- NOTE | 2018-07-09 09:44 | P.PN ---
Subjective Interval history: Follow-up for COPD exacerbation. The patient reports mild improvement overnight , although reports continued significant wheezing and dry nonproductive cough. He does feel like he is able to breathe a little bit better today. Denies any fevers or chills. States his rhinitis is improved. Denies any chest pain, abdominal pain, nausea/vomiting, or diarrhea. He has been taking breaks from his oxygen and maintaining O2 sats. He does not feel ready for discharge. Physical Exam Vital signs: Vital Signs 07/08/18 11:58 07/08/18 12:00 07/08/18 16:00 Temperature 97.7 F 97.9 F Pulse Rate 111 H 117 H 112 H Respiratory Rate 15 16 14 Blood Pressure 107/63 121/67 Pulse Oximetry 93 L 94 L 07/08/18 16:41 07/08/18 19:54 07/08/18 20:00 Temperature 98.5 F Pulse Rate 104 H 114 H 117 H Respiratory Rate 16 16 20 Blood Pressure 106/54 L Pulse Oximetry 95 97 07/09/18 00:00 07/09/18 03:46 07/09/18 06:18 Temperature 97.9 F 98.4 F 97.3 F L Pulse Rate 118 H 108 H 107 H Respiratory Rate 20 20 18 Blood Pressure 122/71 111/57 L 114/58 L Pulse Oximetry 99 98 97 07/09/18 08:00 07/09/18 08:52 Temperature 97.6 F Pulse Rate 108 H 108 H Respiratory Rate 18 18 Blood Pressure 113/60 Pulse Oximetry 97 97 Intake & Output 07/08/18 07/09/18 07/09/18 18:59 06:59 18:59 Intake Total 150 / 150 Balance 150 / 150 Intake: IV 150 / 150 Levaquin 750 mg Premix Inj 150 150 / 150 ML @ 100 mls/hr IV.SIG Q24H [facility] Rx#:[id number] Other: Date of Last Bowel Movement 07/08/18 07/08/18 Narrative: GENERAL: Very pleasant thin elderly AA male patient in NAD. SKIN: Warm and dry. No rash. HEENT: Normocephalic. Atraumatic. Pupils equal and round. Mucous membranes pink and moist. NECK: Trachea midline. CARDIOVASCULAR: Tachycardic, regular rhythm. No murmur appreciated. RESPIRATORY: No accessory muscle use. Diffuse wheezing throughout all lung jewell with scattered rhonchi, poor air movement, minimally improved compared to yesterday. GASTROINTESTINAL: Abdomen soft, non-tender, nondistended. Normoactive bowel sounds x4. MUSCULOSKELETAL: No obvious deformities. Extremities without clubbing, cyanosis , or edema. NEUROLOGICAL: Awake and alert. No obvious cranial nerve deficits. Motor grossly within normal limits. Moving all extremities spontaneously. Normal speech. PSYCHIATRIC: Appropriate mood and affect; insight and judgment normal. Results - Labs CBC & Chem 7: 07/08/18 07:38 07/08/18 07:38 Laboratory Results - last 24 hr 07/08/18 07/08/18 07/08/18 13:54 17:17 21:06 POC Glucose 122 H 261 H 300 H 07/09/18 07:38 POC Glucose 346 H Microbiology 07/07/18 15:05 Blood - Peripheral Aerobic Blood Culture - Preliminary No growth in 1 day 07/07/18 15:05 Blood - Peripheral Anaerobic Blood Culture - Preliminary No growth in 1 day 07/07/18 15:10 Blood - Peripheral Aerobic Blood Culture - Preliminary No growth in 1 day 07/07/18 15:10 Blood - Peripheral Anaerobic Blood Culture - Preliminary No growth in 1 day - Imaging Chest X-Ray 07/07/18 14:56 CONCLUSION: Negative examination. Venous Doppler Study 07/07/18 14:56 CONCLUSION: 1. The study is negative for lower extremity deep venous thrombosis. Chest CTA 07/07/18 14:57 CONCLUSION: 1. No pulmonary embolus. 2. Diffuse chronic bronchiectasis and bronchiolectasis. No acute pneumonia seen. 3. Coronary artery calcification. 4. Cysts and a nonobstructing stone of the visualized right kidney. Apparent interim passage of a previously seen left upper pole renal stone. - Procedures None. Assessment and Plan - Assessment (1) COPD (chronic obstructive pulmonary disease) Code(s): J44.9 - Chronic obstructive pulmonary disease, unspecified Status: Acute (2) Hx of pulmonary embolus Code(s): Z86.711 - Personal history of pulmonary embolism Status: Acute (3) DM (diabetes mellitus) Code(s): E11.9 - Type 2 diabetes mellitus without complications Status: Acute - Plan 72-year-old male with a PMH of HTN, COPD, h/o PE/DVT, A-fib and DM who presented to the ER w/ c/o SOB and wheezing. Acute COPD Exacerbation: with Chronic Respiratory Failure. Severe. ABG with pH 7.46, pCO2 43, pO2 106, HCO3 30 -CXR w/ no acute findings, images reviewed. -Continue IV Solu-Medrol, increased dosing to 60mg q6h -Continue Albuterol nebs q4h valentín and q2h prn -Give antibiotics with IV Levaquin -Continue Symbicort bid -Mucinex bid, Tessalon Perles tid -Started on Claritin for allergies -Continue O2 as needed to keep O2 sat >92% -Incentive spirometer -Minimally improved, monitor closely, will likely require additional 2-3 days of hospitalization H/o PE/DVT: old. no complaints of chest pain or leg pain/edema. -LE Doppler negative for DVT -CTA Chest negative for PE, images reviewed. DM: Acute on Chronic, expect higher blood glucose while on steroids -Holding Metformin -sliding scale w/ Accu-Cheks -uncontrolled sugars on steroids, increased to medium dose SSI, check HgbA1c -07/09 HgbA1c resulted at 9.9, started on levemir 10u hs tonight -consult museum educator/dietitian DVT Prophylaxis: SCD/Teds; Lovenox sq Discharge Planning: Discharge pending further clinical improvement. Not yet ready for discharge. Likely require additional 2 days of aggressive treatment with IV steroids and nebs.
[2018-07-09 12:57] LABS: Hemoglobin A1c 9.9 % (4.3-6.0)
[2018-07-09] MEDS ORDERED: Aluminum/Magnesium/Simethacone Susp 30 ML UDC PO PRN (18:18)
[2018-07-09 19:29] LABS: ABG Base Excess -3.8 mmol/L (-2-2); ABG PCO2 26 mmHg (38-42); ABG PO2 80 mmHg (61-120)
[2018-07-09] MEDS ORDERED: MethylPREDNISolone Sod Succinate Inj 125 MG/2 ML Vial IV.PUSH ONE (19:43)
--- NOTE | 2018-07-09 20:05 | P.PNADD ---
Addendum to Inpatient Note Reason for Addendum: Additional Documentation Additional information: HALICAT S: Responded to Halicat at 7:28 pm for 72 y/o M with sudden increased shortness of breath. Patient has history of COPD, PE/DVT, atrial fibrillation, and diabetes mellitus. Was admitted to the hospital for COPD exacerbation on . Has been receiving Symbicort, albuterol treatments, IV Levaquin, and Solu- Medrol 60 mg IV every 6 hours. Per nursing, patient suddenly became more short of breath, had increased/worsening cough that was productive of white sputum and tachypnea, and became tachycardic with a heart rate 120s-130s. Was given albuterol treatment x1. Has albuterol scheduled every 4 hours and every 2 hours as needed. He had improvement in his vitals after 1 breathing treatment after onset of symptoms. On interview, patient states that he did not notice any choking sensation before his worsening cough started. Denies chest pain but endorses increased shortness of breath, states that he feels like he needs to cough something up but it is getting stuck. Is having some lower back strain from the coughing. Denies any nausea/vomiting, chills, diaphoresis. O: Temperature 97.7, respiratory rate 27, heart rate 137, blood pressure 116/ 62. On 3 L nasal cannula oxygen satting 97-99%. General: This is a well-nourished appearing male with increased cough. He is alert and oriented x3. Appears a little bit uncomfortable. Respiratory: Expiratory rhonchi, no crackles or wheezing. Restricted inspiration airflow Cardiac: Tachycardic Extremities: No calf swelling or tenderness A/P: 72-year-old male with a history of COPD presenting with sudden increased shortness of breath. He is hemodynamically stable. EKG shows sinus tachycardia. Differential: Acute exacerbation versus aspiration versus PE versus pneumothorax -Based on lung exam, will add Atrovent every 4 hours scheduled along with chest physiotherapy to improve inspiratory airflow and facilitate with removal of congestion -Instructed nurse to provide suction as needed at bedside -Order chest x-ray and ABG Primary team was contacted, Sindi BENITEZ was notified of plan. Per Wade's criteria, patient is at moderate to high risk of PE. It was decided to add CTA as well. Plan above discussed with patient's nurse and [place] nurse.
--- NOTE | 2018-07-09 20:21 | XR ---
EXAM DATE: 07/09/2018 7:50 PM EDT AGE/SEX: 72 years / Male INDICATIONS: Shortness of breath. CLINICAL DATA: This is the patient's subsequent encounter. Patient reports that signs and symptoms h ave been present for 3 days and indicates a pain score of 0/10. MEDICAL/SURGICAL HISTORY: Cardiovascular disease. Chronic obstructive pulmonary disease. Christophe roesophageal reflux disease. Renal Disease. None. COMPARISON: [facility] [place]ST 1V SINGLE AP, 07/07/2018. . FINDINGS: A single AP view of the chest demonstrates the lungs to be symmetrically aerated without evidence of mass, infiltrate or effusion. The cardiomediastinal contours are unremarkable. Osseous structures a re intact. CONCLUSION: The lungs are clear. Electronically signed by: Bogdan Rodriguez MD 07/09/2018 8:20 PM EDT
[2018-07-09] MEDS: Enoxaparin Inj 40 MG/0.4 ML Syringe SQ SCH (20:47)
[2018-07-09] MEDS ORDERED: Insulin Detemir Inj 1,000 UNIT/10 ML Vial SQ SCH (21:00)
--- NOTE | 2018-07-09 22:00 | CT ---
EXAM DATE: 07/09/2018 9:19 PM EDT AGE/SEX: 72 years / Male INDICATIONS: Asthma / COPD exacerbation; rule out pulmonary embolus. CLINICAL DATA: This is the patient's subsequent encounter. Patient reports that signs and symptoms h ave been present for 1 week and indicates a pain score of 6/10. MEDICAL/SURGICAL HISTORY: Asthma. Chronic obstructive pulmonary disease. Diabetes. None. RADIATION DOSE: 8.72 CTDI (mGy) COMPARISON: [facility], CTA PULMONARY W CONTRAST W 3D, 07/07/2018. . TECHNIQUE: Volumetric scanning was performed using a multi-row detector CT scanner during bolus infu evie of 74 ml Omnipaque 350 (iohexol) nonionic water-soluble contrast as a single exam dose. The kaye a was post processed with a variety of visualization algorithms including full volume maximum intensi ty projection and sliding thin slab reformation. Using automated exposure control and adjustment of t he mA and/or kV according to patient size, radiation dose was kept as low as reasonably achievable to obtain optimal diagnostic quality images. DICOM format image data is available electronically for r eview and comparison. FINDINGS: Pulmonary Arteries: No filling defects are seen in the pulmonary arteries out to the subsegmental ve ssels. The left and right pulmonary arteries are normal in diameter. Lung: No infiltrates seen. Stable mild lower lung bronchiectasis. Effusion: None. Mediastinum: No evidence of mediastinal or hilar adenopathy. Other: The axilla is unremarkable. CONCLUSION: 1. The study is negative for pulmonary embolism. Electronically signed by: Bogdan Rodriguez MD 07/09/2018 9:59 PM EDT
[2018-07-10] MEDS ORDERED: Metoprolol Tartrate 25 MG Tablet PO ONE (00:54)
[2018-07-10] MEDS: Benzonatate 100 MG Capsule PO SCH ×3 (01:27→17:12)
[2018-07-10] MEDS: MethylPREDNISolone Sod Succinate Inj 40 MG/ML Vial IV.PUSH SCH ×4 (05:14→21:09)
[2018-07-10] MEDS: Insulin NovoLOG Aspart Correctional Sugar Inj SQ SCH ×4 (09:03→21:23)
[2018-07-10] MEDS: Metoprolol Tartrate 25 MG Tablet PO SCH (09:04)
[2018-07-10] MEDS: guaiFENesin 600 MG ER Tablet PO SCH ×2 (09:04→21:10)
[2018-07-10] MEDS: Senna/Docusate Sodium 8.6/50 MG Tablet PO SCH ×2 (09:04→21:24)
[2018-07-10] MEDS: Loratadine/Pseudoephedrine 12HR Tablet PO SCH ×2 (09:04→21:10)
[2018-07-10] MEDS: Budesonide-Formoterol 160/4.5 MCG 6 GM Inhaler INH SCH ×2 (09:11→21:25)
[2018-07-10] MEDS: Sodium Chloride 0.9% 2 ML Flush BID IV.FLUSH SCH ×2 (09:12→21:10)
--- NOTE | 2018-07-10 13:58 | P.PN ---
Subjective Interval history: Following patient with COPD exacerbation, at this time improving condition, but during the night as per nurse he was seen by Rapid response team due to hypoxemia, at this time not wearing oxygen and improving will continue present care and probable will go tomorrow morning. no nausea vomit or diarrhea. Physical Exam Vital signs: Vital Signs 07/09/18 16:00 07/09/18 16:31 07/09/18 18:54 Temperature 98.2 F 97.7 F Pulse Rate 107 H 106 H 123 H Respiratory Rate 16 18 20 Blood Pressure 128/62 116/62 Pulse Oximetry 97 96 07/09/18 19:10 07/09/18 19:13 07/09/18 20:00 Temperature Pulse Rate 124 H Respiratory Rate 20 Blood Pressure Pulse Oximetry 99 100 07/09/18 22:04 07/09/18 23:22 07/10/18 00:00 Temperature 98.2 F Pulse Rate 114 H 113 H 102 H Respiratory Rate 20 16 Blood Pressure 119/60 Pulse Oximetry 98 07/10/18 01:00 07/10/18 01:07 07/10/18 01:12 Temperature Pulse Rate 105 H 106 H Respiratory Rate 18 Blood Pressure Pulse Oximetry 98 07/10/18 02:00 07/10/18 03:00 07/10/18 03:44 Temperature 98.0 F Pulse Rate 103 H 92 H 78 Respiratory Rate 18 18 Blood Pressure 95/54 L Pulse Oximetry 96 07/10/18 04:00 07/10/18 05:00 07/10/18 06:00 Temperature Pulse Rate 99 H 77 76 Respiratory Rate Blood Pressure Pulse Oximetry 07/10/18 07:00 07/10/18 07:32 07/10/18 08:00 Temperature 98.5 F Pulse Rate 85 95 H 104 H Respiratory Rate 18 18 Blood Pressure 134/74 Pulse Oximetry 96 96 07/10/18 09:00 07/10/18 10:00 07/10/18 10:45 Temperature 97.6 F Pulse Rate 104 H 94 H 97 H Respiratory Rate 18 Blood Pressure 105/61 Pulse Oximetry 95 07/10/18 10:51 07/10/18 11:00 07/10/18 11:41 Temperature Pulse Rate 93 H 90 Respiratory Rate 18 Blood Pressure Pulse Oximetry 95 07/10/18 12:00 Temperature Pulse Rate 94 H Respiratory Rate Blood Pressure Pulse Oximetry Intake & Output 07/09/18 07/10/18 07/10/18 18:59 06:59 18:59 Intake Total 1100 / 1100 150 / 150 Balance 1100 / 1100 150 / 150 Weight 61.1 kg Intake: IV 150 / 150 Levaquin 750 mg Premix Inj 150 150 / 150 ML @ 100 mls/hr IV.SIG Q24H VALENTÍN Rx#:[id number] Oral 1100 / 1100 Other: # Voids 4 Date of Last Bowel Movement 07/08/18 07/09/18 Narrative: GENERAL: Very pleasant thin elderly AA male patient in NAD. SKIN: Warm and dry. No rash. HEENT: Normocephalic. Atraumatic. Pupils equal and round. Mucous membranes pink and moist. NECK: Trachea midline. CARDIOVASCULAR: Tachycardic, regular rhythm. No murmur appreciated. RESPIRATORY: No accessory muscle use. No wheezing or crackles at this time. GASTROINTESTINAL: Abdomen soft, non-tender, nondistended. Normoactive bowel sounds x4. MUSCULOSKELETAL: No obvious deformities. Extremities without clubbing, cyanosis , or edema. NEUROLOGICAL: Awake and alert. No obvious cranial nerve deficits. Motor grossly within normal limits. Moving all extremities spontaneously. Normal speech. PSYCHIATRIC: Appropriate mood and affect; insight and judgment normal. Results - Labs CBC & Chem 7: 07/08/18 07:38 07/08/18 07:38 Laboratory Results - last 24 hr 07/09/18 07/09/18 07/09/18 16:25 19:08 19:18 Puncture Site Right radial Patient Temperature 98.6 O2 Saturation 94 ABG pH 7.48 H ABG pCO2 26 L ABG pO2 80 ABG HCO3 19 L ABG O2 Content 16.3 ABG Base Excess -3.8 L ABG Methemoglobin 1.1 Rubin Test Present Hemoglobin 12.3 Carboxyhemoglobin 0.8 O2 Delivery Device Nasal cannula Liter Flow 3.00 Critical Value No POC Glucose 163 H 220 H 07/09/18 07/10/18 07/10/18 23:06 07:50 11:53 Puncture Site Patient Temperature O2 Saturation ABG pH ABG pCO2 ABG pO2 ABG HCO3 ABG O2 Content ABG Base Excess ABG Methemoglobin Rubin Test Hemoglobin Carboxyhemoglobin O2 Delivery Device Liter Flow Critical Value POC Glucose 174 H 252 H 280 H Microbiology 07/09/18 20:22 Blood - Peripheral Aerobic Blood Culture - Preliminary No growth in 1 day 07/09/18 20:22 Blood - Peripheral Anaerobic Blood Culture - Preliminary No growth in 1 day 07/09/18 20:16 Blood - Peripheral Aerobic Blood Culture - Preliminary No growth in 1 day 07/09/18 20:16 Blood - Peripheral Anaerobic Blood Culture - Preliminary No growth in 1 day 07/07/18 15:05 Blood - Peripheral Aerobic Blood Culture - Preliminary No growth in 3 days 07/07/18 15:05 Blood - Peripheral Anaerobic Blood Culture - Preliminary No growth in 3 days 07/07/18 15:10 Blood - Peripheral Aerobic Blood Culture - Preliminary No growth in 3 days 07/07/18 15:10 Blood - Peripheral Anaerobic Blood Culture - Preliminary No growth in 3 days - Imaging Impressions Chest X-Ray 07/07/18 14:56 CONCLUSION: Negative examination. Venous Doppler Study 07/07/18 14:56 CONCLUSION: 1. The study is negative for lower extremity deep venous thrombosis. Chest CTA 07/07/18 14:57 CONCLUSION: 1. No pulmonary embolus. 2. Diffuse chronic bronchiectasis and bronchiolectasis. No acute pneumonia seen. 3. Coronary artery calcification. 4. Cysts and a nonobstructing stone of the visualized right kidney. Apparent interim passage of a previously seen left upper pole renal stone. - Procedures None. Assessment and Plan - Assessment (1) COPD (chronic obstructive pulmonary disease) Code(s): J44.9 - Chronic obstructive pulmonary disease, unspecified Status: Acute (2) Hx of pulmonary embolus Code(s): Z86.711 - Personal history of pulmonary embolism Status: Acute (3) DM (diabetes mellitus) Code(s): E11.9 - Type 2 diabetes mellitus without complications Status: Acute - Plan 72-year-old male with a PMH of HTN, COPD, h/o PE/DVT, A-fib and DM who presented to the ER w/ c/o SOB and wheezing. Acute COPD Exacerbation: with Chronic Respiratory Failure. Severe. ABG with pH 7.46, pCO2 43, pO2 106, HCO3 30 -CXR w/ no acute findings, images reviewed. -Continue IV Solu-Medrol, increased dosing to 60mg q6h -Continue Albuterol nebs q4h valentín and q2h prn -Give antibiotics with IV Levaquin -Continue Symbicort bid -Mucinex bid, Tessalon Perles tid -Started on Claritin for allergies -Continue O2 as needed to keep O2 sat >92% -Incentive spirometer -Improving today if continue like this will be able to go home tomorrow morning. H/o PE/DVT: old. no complaints of chest pain or leg pain/edema. -LE Doppler negative for DVT -CTA Chest negative for PE, images reviewed. DM: Acute on Chronic, expect higher blood glucose while on steroids -Holding Metformin -sliding scale w/ Accu-Cheks -uncontrolled sugars on steroids, increased to medium dose SSI, check HgbA1c -07/09 HgbA1c resulted at 9.9, Continue on Levemir 10u hs tonight -consult public health educator/dietitian DVT Prophylaxis: SCD/Teds; Lovenox sq Code Status: Full code Discussed Condition With: patient and Nurse Miss Jacobson Discharge Planning: Expected by tomorrow
[2018-07-10] MEDS ORDERED: Insulin Detemir Inj 1,000 UNIT/10 ML Vial SQ SCH (21:00)
[2018-07-10] MEDS: Enoxaparin Inj 40 MG/0.4 ML Syringe SQ SCH (21:09)
[2018-07-11] MEDS: Benzonatate 100 MG Capsule PO SCH ×2 (01:46→11:20)
[2018-07-11 04:06] VITALS: RESP 18
[2018-07-11] MEDS: MethylPREDNISolone Sod Succinate Inj 40 MG/ML Vial IV.PUSH SCH ×2 (04:13→11:20)
[2018-07-11] MEDS: Senna/Docusate Sodium 8.6/50 MG Tablet PO SCH (08:23)
[2018-07-11] MEDS: Loratadine/Pseudoephedrine 12HR Tablet PO SCH (08:23)
[2018-07-11] MEDS: guaiFENesin 600 MG ER Tablet PO SCH (08:23)
[2018-07-11] MEDS: Metoprolol Tartrate 25 MG Tablet PO SCH (08:24)
[2018-07-11] MEDS: Insulin NovoLOG Aspart Correctional Sugar Inj SQ SCH (08:28)
--- NOTE | 2018-07-11 08:37 | P.PN ---
Subjective Interval history: Following patient with COPD exacerbation, at this time improving condition, but during the night as per nurse he was seen by Rapid response team due to hypoxemia, at this time not wearing oxygen and improving will continue present care and probable will go tomorrow morning. 07/11: Discussed with nurse Mr. Davey and also with patient he states he is not using Prednisone at home even is in Medicine reconciliation, will discharge the patient home and follow by PCP in three days, he is stable at this time will continue Prednisone for 12 days, Levaquin for 5 days and follow as outpatient. no nausea, vomit or diarrhea. Physical Exam Vital signs: Vital Signs 07/10/18 09:00 07/10/18 10:00 07/10/18 10:45 Temperature 97.6 F Pulse Rate 104 H 94 H 97 H Respiratory Rate 18 Blood Pressure 105/61 Pulse Oximetry 95 07/10/18 10:51 07/10/18 11:00 07/10/18 11:41 Temperature Pulse Rate 93 H 90 Respiratory Rate 18 Blood Pressure Pulse Oximetry 95 07/10/18 12:00 07/10/18 13:00 07/10/18 14:00 Temperature Pulse Rate 94 H 94 H 100 H Respiratory Rate Blood Pressure Pulse Oximetry 07/10/18 14:49 07/10/18 15:00 07/10/18 16:00 Temperature 97.0 F L Pulse Rate 93 H 98 H 100 H Respiratory Rate 18 Blood Pressure 109/66 Pulse Oximetry 95 07/10/18 17:00 07/10/18 17:48 07/10/18 18:00 Temperature Pulse Rate 94 H 88 90 Respiratory Rate 18 Blood Pressure Pulse Oximetry 07/10/18 19:00 07/10/18 19:23 07/10/18 20:00 Temperature 98.7 F Pulse Rate 91 H 95 H 89 Respiratory Rate 18 16 Blood Pressure 121/72 Pulse Oximetry 100 98 97 07/10/18 22:00 07/10/18 23:00 07/10/18 23:21 Temperature 98.3 F Pulse Rate 90 97 H 72 Respiratory Rate 20 16 Blood Pressure 122/72 Pulse Oximetry 100 07/11/18 00:00 07/11/18 01:00 07/11/18 02:00 Temperature Pulse Rate 93 H 81 89 Respiratory Rate Blood Pressure Pulse Oximetry 07/11/18 03:00 07/11/18 04:00 07/11/18 04:04 Temperature 97.9 F Pulse Rate 98 H 94 H 98 H Respiratory Rate 18 18 Blood Pressure 127/69 Pulse Oximetry 100 07/11/18 05:00 07/11/18 06:00 07/11/18 07:00 Temperature Pulse Rate 88 98 H 94 H Respiratory Rate Blood Pressure Pulse Oximetry 07/11/18 08:31 Temperature Pulse Rate 95 H Respiratory Rate Blood Pressure Pulse Oximetry 90 L Intake & Output 07/10/18 07/11/18 07/11/18 18:59 06:59 18:59 Intake Total 840 / 840 240 / 240 150 / 150 Output Total 3 / 3 300 / 300 Balance 837 / 837 -60 / -60 150 / 150 Weight 60.3 kg Intake: IV 150 / 150 Levaquin 750 mg Premix Inj 150 150 / 150 ML @ 100 mls/hr IV.SIG Q24H VALENTÍN Rx#:[id number] Oral 840 / 840 240 / 240 Output: Urine 300 / 300 Stool 3 / 3 Other: # Voids 3 1 Date of Last Bowel Movement 07/10/18 07/10/18 Narrative: GENERAL: Very pleasant thin elderly AA male patient in [facility]. SKIN: Warm and dry. No rash. HEENT: Normocephalic. Atraumatic. Pupils equal and round. Mucous membranes pink and moist. NECK: Trachea midline. CARDIOVASCULAR: Tachycardic, regular rhythm. No murmur appreciated. RESPIRATORY: No accessory muscle use. No wheezing or crackles at this time. GASTROINTESTINAL: Abdomen soft, non-tender, nondistended. Normoactive bowel sounds x4. MUSCULOSKELETAL: No obvious deformities. Extremities without clubbing, cyanosis , or edema. NEUROLOGICAL: Awake and alert. No obvious cranial nerve deficits. Motor grossly within normal limits. Moving all extremities spontaneously. Normal speech. PSYCHIATRIC: Appropriate mood and affect; insight and judgment normal. Results - Labs CBC & Chem 7: 07/08/18 07:38 07/08/18 07:38 Laboratory Results - last 24 hr 07/10/18 07/10/18 07/10/18 11:53 16:43 21:19 POC Glucose 280 H 161 H 169 H 07/11/18 08:16 POC Glucose 170 H Microbiology 07/09/18 20:22 Blood - Peripheral Aerobic Blood Culture - Preliminary No growth in 1 day 07/09/18 20:22 Blood - Peripheral Anaerobic Blood Culture - Preliminary No growth in 1 day 07/09/18 20:16 Blood - Peripheral Aerobic Blood Culture - Preliminary No growth in 1 day 07/09/18 20:16 Blood - Peripheral Anaerobic Blood Culture - Preliminary No growth in 1 day 07/07/18 15:05 Blood - Peripheral Aerobic Blood Culture - Preliminary No growth in 3 days 07/07/18 15:05 Blood - Peripheral Anaerobic Blood Culture - Preliminary No growth in 3 days 07/07/18 15:10 Blood - Peripheral Aerobic Blood Culture - Preliminary No growth in 3 days 07/07/18 15:10 Blood - Peripheral Anaerobic Blood Culture - Preliminary No growth in 3 days - Procedures None. Assessment and Plan - Assessment (1) COPD (chronic obstructive pulmonary disease) Code(s): J44.9 - Chronic obstructive pulmonary disease, unspecified Status: Acute (2) Hx of pulmonary embolus Code(s): Z86.711 - Personal history of pulmonary embolism Status: Acute (3) DM (diabetes mellitus) Code(s): E11.9 - Type 2 diabetes mellitus without complications Status: Acute - Plan 72-year-old male with a PMH of HTN, COPD, h/o PE/DVT, A-fib and DM who presented to the ER w/ c/o SOB and wheezing. Acute COPD Exacerbation: with Chronic Respiratory Failure. Severe. ABG with pH 7.46, pCO2 43, pO2 106, HCO3 30 -CXR w/ no acute findings, images reviewed. -Continue IV Solu-Medrol, increased dosing to 60mg q6h -Continue Albuterol nebs q4h valentín and q2h prn -Give antibiotics with IV Levaquin -Continue Symbicort bid -Mucinex bid, Tessalon Perles tid -Started on Claritin for allergies -Continue O2 as needed to keep O2 sat >92% -Incentive spirometer -Will discharge patient on Prednisone by mouth for 12 days, Levaquin for five days, and he states he has Oxygen at home the patient states he is not using Prednisone but is on his Medication reconciliation, will continue steroids for 12 days. Symbicort and Mucinex BID. H/o PE/DVT: old. no complaints of chest pain or leg pain/edema. -LE Doppler negative for DVT -CTA Chest negative for PE, images reviewed. DM II: Acute on Chronic, expect higher blood glucose while on steroids -07/09 HgbA1c resulted at 9.9, Continue on Levemir 10u hs aneta -consult health promotion educator/dietitian -Continue Home medicines at discharge. DVT Prophylaxis: SCD/Teds; Lovenox sq Code Status: Full Code. Discussed Condition With: Patient and Nurse Mr. Davey. Discharge Planning: Discharge Home today.
--- NOTE | 2018-07-11 10:19 | P.DS ---
Date of admission: 07/08/18 12:04 Primary care physician: UNKNOWN Attending physician on discharge: Jerry Guzman Anticipated date of discharge: 07/11/18 Brief History from admission: This is a 72-year-old male with a PMH of HTN, COPD, h/o PE/DVT, A-fib and DM who presented to the ER w/ c/o SOB and wheezing. Reports symptoms have been ongoing for approx 3-4wks, now progressively worse since yesterday. Recent admit to hospital in [facility] for COPD 3wks ago, states he had improvement , however decompensated once he got back to [facility] approx 1wk ago. Denies fever or chills. Does report non-productive cough and nasal congestion. On arrival, BP 132/65, HR 122, O2 sat 93% on RA, Afebrile. WBC 11.5. ABG pH 7.46 , PCO2 43, PO2 106 on 2L NC. Chemistry essentially unremarkable. Troponin negative. CXR negative. LE Doppler negative for DVT. CTA Chest negative for PE, diffuse chronic bronchiectasis and bronchiolectasis, no pneumonia seen. S/ p Solu-Medrol and DuoNeb in ER w/ some improvement, however persistent SOB and wheezing. DS: Diagnosis - Discharge Diagnosis (1) COPD (chronic obstructive pulmonary disease) Status: Acute (2) Hx of pulmonary embolus Status: Acute (3) DM (diabetes mellitus) Status: Acute DS: Summary Hospital Course: Following patient with COPD exacerbation, at this time improving condition, but during the night as per nurse he was seen by Rapid response team due to hypoxemia, at this time not wearing oxygen and improving will continue present care and probable will go tomorrow morning. 07/11: Discussed with nurse Dada Petar and also with patient he states he is not using Prednisone at home even is in Medicine reconciliation, will discharge the patient home and follow by PCP in three days, he is stable at this time will continue Prednisone for 12 days, Levaquin for 5 days and follow as outpatient. no nausea, vomit or diarrhea. Physical Exam Vital signs: Vital Signs 07/10/18 09:00 07/10/18 10:00 07/10/18 10:45 Temperature 97.6 F Pulse Rate 104 H 94 H 97 H Respiratory Rate 18 Blood Pressure 105/61 Pulse Oximetry 95 07/10/18 10:51 10/08/18 11:00 07/10/18 11:41 Temperature Pulse Rate 93 H 90 Respiratory Rate 18 Blood Pressure Pulse Oximetry 95 07/10/18 12:00 07/10/18 13:00 07/10/18 14:00 Temperature Pulse Rate 94 H 94 H 100 H Respiratory Rate Blood Pressure Pulse Oximetry 07/10/18 14:49 07/10/18 15:00 07/10/18 16:00 Temperature 97.0 F L Pulse Rate 93 H 98 H 100 H Respiratory Rate 18 Blood Pressure 109/66 Pulse Oximetry 95 07/10/18 17:00 07/10/18 17:48 07/10/18 18:00 Temperature Pulse Rate 94 H 88 90 Respiratory Rate 18 Blood Pressure Pulse Oximetry 07/10/18 19:00 07/10/18 19:23 07/10/18 20:00 Temperature 98.7 F Pulse Rate 91 H 95 H 89 Respiratory Rate 18 16 Blood Pressure 121/72 Pulse Oximetry 100 98 97 07/10/18 22:00 07/10/18 23:00 07/10/18 23:21 Temperature 98.3 F Pulse Rate 90 97 H 72 Respiratory Rate 20 16 Blood Pressure 122/72 Pulse Oximetry 100 07/11/18 00:00 07/11/18 01:00 07/11/18 02:00 Temperature Pulse Rate 93 H 81 89 Respiratory Rate Blood Pressure Pulse Oximetry 07/11/18 03:00 07/11/18 04:00 07/11/18 04:04 Temperature 97.9 F Pulse Rate 98 H 94 H 98 H Respiratory Rate 18 18 Blood Pressure 127/69 Pulse Oximetry 100 07/11/18 05:00 07/11/18 06:00 07/11/18 07:00 Temperature Pulse Rate 88 98 H 94 H Respiratory Rate Blood Pressure Pulse Oximetry 07/11/18 08:31 Temperature Pulse Rate 95 H Respiratory Rate Blood Pressure Pulse Oximetry 90 L Intake & Output 07/10/18 07/11/18 07/11/18 18:59 06:59 18:59 Intake Total 840 / 840 240 / 240 150 / 150 Output Total 3 / 3 300 / 300 Balance 837 / 837 -60 / -60 150 / 150 Weight 60.3 kg Intake: IV 150 / 150 Levaquin 750 mg Premix Inj 150 150 / 150 ML @ 100 mls/hr IV.SIG Q24H VALENTÍN Rx#:[id number] Oral 840 / 840 240 / 240 Output: Urine 300 / 300 Stool 3 / 3 Other: # Voids 3 1 Date of Last Bowel Movement 07/10/18 07/10/18 Results - Labs CBC & Chem 7: 07/08/18 07:38 07/08/18 07:38 Laboratory Results - last 24 hr 07/10/18 07/10/18 07/10/18 11:53 16:43 21:19 POC Glucose 280 H 161 H 169 H 07/11/18 08:16 POC Glucose 170 H Microbiology 07/09/18 20:22 Blood - Peripheral Aerobic Blood Culture - Preliminary No growth in 1 day 07/09/18 20:22 Blood - Peripheral Anaerobic Blood Culture - Preliminary No growth in 1 day 07/09/18 20:16 Blood - Peripheral Aerobic Blood Culture - Preliminary No growth in 1 day 07/09/18 20:16 Blood - Peripheral Anaerobic Blood Culture - Preliminary No growth in 1 day 07/07/18 15:05 Blood - Peripheral Aerobic Blood Culture - Preliminary No growth in 3 days 07/07/18 15:05 Blood - Peripheral Anaerobic Blood Culture - Preliminary No growth in 3 days 07/07/18 15:10 Blood - Peripheral Aerobic Blood Culture - Preliminary No growth in 3 days 07/07/18 15:10 Blood - Peripheral Anaerobic Blood Culture - Preliminary No growth in 3 days - Procedures None. Assessment and Plan - Assessment (1) COPD (chronic obstructive pulmonary disease) Code(s): J44.9 - Chronic obstructive pulmonary disease, unspecified Status: Acute (2) Hx of pulmonary embolus Code(s): Z86.711 - Personal history of pulmonary embolism Status: Acute (3) DM (diabetes mellitus) Code(s): E11.9 - Type 2 diabetes mellitus without complications Status: Acute - Plan 72-year-old male with a PMH of HTN, COPD, h/o PE/DVT, A-fib and DM who presented to the ER w/ c/o SOB and wheezing. Acute COPD Exacerbation: with Chronic Respiratory Failure. Severe. ABG with pH 7.46, pCO2 43, pO2 106, HCO3 30 -CXR w/ no acute findings, images reviewed. -Continue IV Solu-Medrol, increased dosing to 60mg q6h -Continue Albuterol nebs q4h valentín and q2h prn -Give antibiotics with IV Levaquin -Continue Symbicort bid -Mucinex bid, Tessalon Perles tid -Started on Claritin for allergies -Continue O2 as needed to keep O2 sat >92% -Incentive spirometer -Will discharge patient on Prednisone by mouth for 12 days, Levaquin for five days, and he states he has Oxygen at home the patient states he is not using Prednisone but is on his Medication reconciliation, will continue steroids for 12 days. Symbicort and Mucinex BID. H/o PE/DVT: old. no complaints of chest pain or leg pain/edema. -LE Doppler negative for DVT -CTA Chest negative for PE, images reviewed. DM II: Acute on Chronic, expect higher blood glucose while on steroids -07/09 HgbA1c resulted at 9.9, Continue on Levemir 10u hs tonight -consult school vocational educator/dietitian -Continue Home medicines at discharge. DVT Prophylaxis: SCD/Teds; Lovenox sq Code Status: Full Code. Discussed Condition With: Patient and Nurse Mr. Davey. Discharge Planning: Discharge Home today. - Time Spent with Patient Total time spent providing and/or coordinating discharge services: Less than 30 minutes - Quality: VTE Deep Vein Thrombosis/Pulmonary Embolism Present on Admission: No Exam Vital signs: Vital Signs 07/10/18 10:45 07/10/18 10:51 07/10/18 11:00 Temperature 97.6 F Pulse Rate 97 H 93 H Respiratory Rate 18 Blood Pressure 105/61 Pulse Oximetry 95 95 07/10/18 11:41 07/10/18 12:00 07/10/18 13:00 Temperature Pulse Rate 90 94 H 94 H Respiratory Rate 18 Blood Pressure Pulse Oximetry 07/10/18 14:00 07/10/18 14:49 07/10/18 15:00 Temperature 97.0 F L Pulse Rate 100 H 93 H 98 H Respiratory Rate 18 Blood Pressure 109/66 Pulse Oximetry 95 07/10/18 16:00 07/10/18 17:00 07/10/18 17:48 Temperature Pulse Rate 100 H 94 H 88 Respiratory Rate 18 Blood Pressure Pulse Oximetry 07/10/18 18:00 07/10/18 19:00 07/10/18 19:23 Temperature 98.7 F Pulse Rate 90 91 H 95 H Respiratory Rate 18 16 Blood Pressure 121/72 Pulse Oximetry 100 98 07/10/18 20:00 07/10/18 22:00 07/10/18 23:00 Temperature 98.3 F Pulse Rate 89 90 97 H Respiratory Rate 20 Blood Pressure 122/72 Pulse Oximetry 97 100 07/10/18 23:21 07/11/18 00:00 07/11/18 01:00 Temperature Pulse Rate 72 93 H 81 Respiratory Rate 16 Blood Pressure Pulse Oximetry 07/11/18 02:00 07/11/18 03:00 07/11/18 04:00 Temperature 97.9 F Pulse Rate 89 98 H 94 H Respiratory Rate 18 Blood Pressure 127/69 Pulse Oximetry 100 07/11/18 04:04 07/11/18 05:00 07/11/18 06:00 Temperature Pulse Rate 98 H 88 98 H Respiratory Rate 18 Blood Pressure Pulse Oximetry 07/11/18 07:00 07/11/18 08:31 Temperature 97.9 F Pulse Rate 88 95 H Respiratory Rate 18 Blood Pressure 128/69 Pulse Oximetry 98 90 L Intake & Output 07/10/18 07/11/18 07/11/18 18:59 06:59 18:59 Intake Total 840 / 840 240 / 240 150 / 150 Output Total 3 / 3 300 / 300 Balance 837 / 837 -60 / -60 150 / 150 Weight 60.3 kg Intake: IV 150 / 150 Levaquin 750 mg Premix Inj 150 150 / 150 ML @ 100 mls/hr IV.SIG Q24H VALENTÍN Rx#:[id number] Oral 840 / 840 240 / 240 Output: Urine 300 / 300 Stool 3 / 3 Other: # Voids 3 1 Date of Last Bowel Movement 07/10/18 07/10/18 Narrative: GENERAL: Very pleasant thin elderly AA male patient in [facility]. SKIN: Warm and dry. No rash. HEENT: Normocephalic. Atraumatic. Pupils equal and round. Mucous membranes pink and moist. NECK: Trachea midline. CARDIOVASCULAR: Tachycardic, regular rhythm. No murmur appreciated. RESPIRATORY: No accessory muscle use. No wheezing or crackles at this time. GASTROINTESTINAL: Abdomen soft, non-tender, nondistended. Normoactive bowel sounds x4. MUSCULOSKELETAL: No obvious deformities. Extremities without clubbing, cyanosis , or edema. NEUROLOGICAL: Awake and alert. No obvious cranial nerve deficits. Motor grossly within normal limits. Moving all extremities spontaneously. Normal speech. PSYCHIATRIC: Appropriate mood and affect; insight and judgment normal. Results Procedures completed during hospitalization: None. Labs on day of discharge: Labs from last 24 hours 07/11/18 07/10/18 07/10/18 08:16 21:19 16:43 POC Glucose 170 H 169 H 161 H 07/10/18 11:53 POC Glucose 280 H Preliminary micro results at discharge 07/09/18 20:22 Aerobic Blood Culture - Preliminary Blood - Peripheral No growth in 1 day Anaerobic Blood Culture - Preliminary No growth in 1 day 07/09/18 20:16 Aerobic Blood Culture - Preliminary Blood - Peripheral No growth in 1 day Anaerobic Blood Culture - Preliminary No growth in 1 day 07/07/18 15:05 Aerobic Blood Culture - Preliminary Blood - Peripheral No growth in 3 days Anaerobic Blood Culture - Preliminary No growth in 3 days 07/07/18 15:10 Aerobic Blood Culture - Preliminary Blood - Peripheral No growth in 3 days Anaerobic Blood Culture - Preliminary No growth in 3 days - Impressions ITS Impressions Venous Doppler Study 07/07/18 14:56 CONCLUSION: 1. The study is negative for lower extremity deep venous thrombosis. Chest CTA 07/09/18 00:00 CONCLUSION: 1. The study is negative for pulmonary embolism. Chest X-Ray 07/09/18 19:50 CONCLUSION: The lungs are clear. Discharge Plan - Discharge Disposition Patient Disposition: 01 Discharge Home - Discharge Condition Condition: Stable - Discharge Order Discharge Orders: Discharge Order (Routine); Ordered 07/11/18 Ordered By: Jerry Guzman - Discharge Details Anticipated Discharge Date: 07/11/18 Discharge Comment: Follow with PCP in three days. - Physicians Team Primary Care Provider: UNKNOWN, Attending Provider: Jerry Guzman Other Providers: [employer]
[2018-07-11] MEDS: Sodium Chloride 0.9% 2 ML Flush BID IV.FLUSH SCH (11:20)
[2018-07-11] MEDS: Budesonide-Formoterol 160/4.5 MCG 6 GM Inhaler INH SCH (11:21)
[2018-07-11 12:07] VITALS: PULSE 85
[2018-07-11 12:23] VITALS: BP 118/70; TEMP 98.1; O2SAT 99
== END 2018-07-11 13:06 | disposition home or self-care (01) ==
LOC: NEPC 12:56 → NEDA 12:56 → NEPFCDU 23:57 → N06 07-09 05:49 → HCPC 07-09 23:24
PROVIDERS: ADMIT Internal Medicine; ATTEND Internal Medicine